=== PATIENT | female | born 1960 | race Caucasian/White ===

== ENCOUNTER 2017-05-12 19:13 | Emergency (ER) | payer MEDICARE, OTHER ==
[~2017-05-12] VITALS: Ht 157.5 cm; Wt 66.2 kg
[~2017-05-12 19:13] MED LIST: DILANTIN100 MG PO; KEPPRA500 MG PO; KEPPRA750 MG PO; PAXIL40 MG PO; PHENYTOIN SODI100 MG PO; PHENYTOIN50 MG PO; RISPERDAL2 MG PO; SIMVASTATIN20 MG PO
== END 2017-05-12 21:54 | disposition home or self-care (01) ==
LOC: ED 19:13
DX: G40.909 Epilepsy, unspecified, not intractable, without status epilepticus (principal); F17.200 Nicotine dependence, unspecified, uncomplicated; Z88.8 Allergy status to other drugs, medicaments and biological substances; Z79.899 Other long term (current) drug therapy
CPT/HCPCS: 80053; 80185; 82542; 85025; 99283

== ENCOUNTER 2017-07-03 11:34 | Emergency (ER) | payer MEDICARE, OTHER ==
[~2017-07-03] VITALS: Ht 157.5 cm; Wt 66.2 kg
== END 2017-07-03 13:40 | disposition home or self-care (01) ==
LOC: ED 11:34
DX: G40.909 Epilepsy, unspecified, not intractable, without status epilepticus (principal); F17.200 Nicotine dependence, unspecified, uncomplicated; Z88.4 Allergy status to anesthetic agent; Z79.899 Other long term (current) drug therapy
CPT/HCPCS: 99282

== ENCOUNTER 2017-10-10 18:46 | Emergency (ER) | payer MEDICARE, OTHER ==
[~2017-10-10] VITALS: Ht 157.5 cm; Wt 66.2 kg
[2017-10-10] MEDS ORDERED: DILANTIN100 MG PO (19:28)
== END 2017-10-10 19:36 | disposition home or self-care (01) ==
LOC: ED 18:46
DX: Z76.0 Encounter for issue of repeat prescription (principal); G40.909 Epilepsy, unspecified, not intractable, without status epilepticus; F17.200 Nicotine dependence, unspecified, uncomplicated; Z88.8 Allergy status to other drugs, medicaments and biological substances; Z79.899 Other long term (current) drug therapy
CPT/HCPCS: 99283

== ENCOUNTER 2018-02-13 13:14 | Emergency (ER) | payer MEDICARE, OTHER ==
[~2018-02-13] VITALS: Ht 157.5 cm; Wt 68.0 kg
== END 2018-02-13 14:26 | disposition home or self-care (01) ==
LOC: ED 13:14
PROC: 0HQ1XZZ Repair Face Skin, External Approach (ICD-10-PCS; principal; 2018-02-13)
DX: S01.81XA Laceration without foreign body of other part of head, initial encounter (principal); Z23 Encounter for immunization; F17.200 Nicotine dependence, unspecified, uncomplicated; Z88.8 Allergy status to other drugs, medicaments and biological substances; Z79.899 Other long term (current) drug therapy; W26.8XXA Contact with other sharp object(s), not elsewhere classified, initial encounter
CPT/HCPCS: 12011; 90471; 90715; 99282

== ENCOUNTER 2019-06-18 13:20 | Emergency (ER) | payer MEDICARE, OTHER ==
[~2019-06-18] VITALS: Ht 157.5 cm; Wt 72.6 kg
--- OUTSIDE RECORDS SUMMARY | 2019-06-18 13:22 | XMS ---
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 EJosiah VISIT COUNT (12 MO.) 1 [facility] TOTAL 1 NOTE: Visits indicate total known visits. ED/UCC VISIT TRACKING (12 MO.) 06/18/2019 13:21 [facility] [place] TYPE: Emergency COMPLAINT: - BACK PAIN,LT SIDED RIB PAIN INPATIENT VISIT TRACKING (12 MO.) No inpatient visits to display in this time frame [id number]
== END 2019-06-18 15:35 | disposition home or self-care (01) ==
LOC: ED 13:20
DX: S20.212A Contusion of left front wall of thorax, initial encounter (principal); F17.200 Nicotine dependence, unspecified, uncomplicated; Z88.4 Allergy status to anesthetic agent; W18.30XA Fall on same level, unspecified, initial encounter
CPT/HCPCS: 71101; 99283-25; 99406

== ENCOUNTER 2019-08-21 20:58 | Emergency (ER) | payer MEDICARE, OTHER ==
[~2019-08-21] VITALS: Ht 157.5 cm; Wt 72.6 kg
--- NOTE | ~2019-08-21 | EKG ---
[facility] [address] [facility] [place], [place] [address] Draft EK completed, results pending confirmation PATIENT NAME: DEISY KEVIN Electrocardiogram DATE OF : 60 PHYSICIAN: PRELIMINARY REPORT #: [id number] REPORT IS CONFIDENTIAL AND NOT TO BE RELEASED WITHOUT AUTHORIZATION
--- OUTSIDE RECORDS SUMMARY | 2019-08-21 21:00 | XMS ---
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 Niru VISIT COUNT (12 MO.) 1 [facility] 2 [facility] TOTAL 3 NOTE: Visits indicate total known visits. ED/UCC VISIT TRACKING (12 MO.) 08/21/2019 20:58 [facility] [place] TYPE: Emergency COMPLAINT: - FALL 07/29/2019 17:13 [facility] [place] TYPE: Emergency DIAGNOSES: - KNEE PAIN - Unspecified abnormalities of gait and mobility - Unilateral primary osteoarthritis, right knee - Residual foreign body in soft tissue 06/18/2019 13:21 [facility] [place] TYPE: Emergency COMPLAINT: - BACK PAIN,LT SIDED RIB PAIN DIAGNOSES: - Nicotine dependence, cigarettes, uncomplicated - Nicotine dependence, unspecified, uncomplicated - Pleurodynia - Allergy status to anesthetic agent status - Contusion of left front wall of thorax, initial encounter - Fall on same level, unspecified, initial encounter INPATIENT VISIT TRACKING (12 MO.) No inpatient visits to display in this time frame [id number]
[2019-08-21] MEDS ORDERED: KEPPRA750 MG PO (21:16)
[2019-08-21] MEDS ORDERED: RISPERDAL2 MG PO (21:17)
[2019-08-21] MEDS ORDERED: PAROXETINE HCL20 MG PO (21:17)
[2019-08-21] MEDS ORDERED: KEFLEX500 MG PO (23:49)
== END 2019-08-22 00:26 | disposition left against medical advice (07) ==
LOC: ED 20:58
DX: S00.31XA Abrasion of nose, initial encounter (principal); N39.0 Urinary tract infection, site not specified; T42.0X5A Adverse effect of hydantoin derivatives, initial encounter; F17.200 Nicotine dependence, unspecified, uncomplicated; Z88.8 Allergy status to other drugs, medicaments and biological substances; Z79.899 Other long term (current) drug therapy; W01.118A Fall on same level from slipping, tripping and stumbling with subsequent striking against other sharp object, initial encounter
CPT/HCPCS: 51701; 70450; 70486; 71045; 73560; 80053; 80185; 81001; 84484; 85025; 93005; 93010; 99284-25; G0480; J0696; J7030

== ENCOUNTER 2021-04-23 16:00 | Emergency (ER) | payer MEDICARE, OTHER ==
[~2021-04-23] VITALS: Ht 157.5 cm; Wt 78.9 kg
[~2021-04-23 16:00] MED LIST changes: +KEFLEX500 MG PO; +PAROXETINE HCL20 MG PO
--- OUTSIDE RECORDS SUMMARY | 2021-04-23 16:10 | XMS ---
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 Care History Medical/Surgical 08/22/2019 [facility] - Patient is currently established with [facility]. If patient is seen in the ED during business hours. Please contact CHWs at [facility]. Care Recommendation: This patient has had 5 or more Emergency Department visits in the last 12 months.\T\nbsp; Patient requires education on the scope and purpose of the ED as an acute care provider not a Primary Care Provider and should not be utilized for chronic conditions.\T\nbsp; These are guidelines and the provider should exercise clinical judgment when providing care. E.D. VISIT COUNT (12 MO.) 1 [facility] TOTAL 1 NOTE: Visits indicate total known visits. ED/UCC VISIT TRACKING (12 MO.) 04/23/2021 16:00 [facility] [place] TYPE: Emergency COMPLAINT: - L HAND LACERATION INPATIENT VISIT TRACKING (12 MO.) No inpatient visits to display in this time frame [id number]
== END 2021-04-23 17:39 | disposition home or self-care (01) ==
LOC: ED 16:00
DX: S61.512A Laceration without foreign body of left wrist, initial encounter (principal); W26.8XXA Contact with other sharp object(s), not elsewhere classified, initial encounter; F17.200 Nicotine dependence, unspecified, uncomplicated; Z79.899 Other long term (current) drug therapy
CPT/HCPCS: 12001; 73130; 99283-25

== ENCOUNTER 2021-09-05 13:57 | Emergency (ER) | payer MEDICARE, OTHER ==
[~2021-09-05] VITALS: Ht 157.5 cm; Wt 78.9 kg
--- OUTSIDE RECORDS SUMMARY | 2021-09-05 14:06 | XMS ---
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 Care History Medical/Surgical 08/22/2019 [facility] - Patient is currently established with [facility]. If patient is seen in the ED during business hours. Please contact CHWs at [facility]. Care Recommendation: This patient has had 5 [...] providing care. E.D. VISIT COUNT (12 MO.) 2 [facility] TOTAL 2 NOTE: Visits indicate total known visits. 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
[2021-09-05] MEDS ORDERED: ALENDRONATE SOD70 MG PO (14:31)
== END 2021-09-05 18:00 | disposition home or self-care (01) ==
LOC: ED 13:57
DX: S32.039A Unspecified fracture of third lumbar vertebra, initial encounter for closed fracture (principal); F17.200 Nicotine dependence, unspecified, uncomplicated; Z88.4 Allergy status to anesthetic agent; Z79.899 Other long term (current) drug therapy; W19.XXXA Unspecified fall, initial encounter
CPT/HCPCS: 72100; 99283-25; A9270

== ENCOUNTER 2022-06-02 19:16 | Emergency (ER) | payer MEDICARE, OTHER ==
[~2022-06-02] VITALS: Ht 157.5 cm; Wt 78.9 kg
[~2022-06-02 19:16] MED LIST changes: +ALENDRONATE SOD70 MG PO
--- OUTSIDE RECORDS SUMMARY | 2022-06-02 19:22 | XMS ---
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 Care History Medical/Surgical 08/22/[address] [facility] - Patient is currently established with [facility]. If patient is seen in the ED during business hours. Please contact CHWs at [facility]. Care Recommendation: This patient has [...] care. E.D. VISIT COUNT (12 MO.) 2 [facility] TOTAL 2 NOTE: Visits indicate total known visits. ED/UCC VISIT TRACKING (12 MO.) 06/02/2022 19:16 [facility] [place] TYPE: Emergency COMPLAINT: - SEIZURE 09/05/2021 13:58 [facility] [place] TYPE: Emergency COMPLAINT: - FELL INJURED BACK DIAGNOSES: - Unspecified fracture of third lumbar vertebra, initial encounter for closed fracture - LOW BACK PAIN, UNSPECIFIED - Unspecified fall, initial encounter - Allergy status to anesthetic agent - Nicotine dependence, unspecified, uncomplicated - Other senior living (current) drug therapy INPATIENT VISIT TRACKING (12 MO.) No inpatient visits to display in this time frame [id number]
== END 2022-06-02 20:30 | disposition home or self-care (01) ==
LOC: ED 19:16
DX: G40.909 Epilepsy, unspecified, not intractable, without status epilepticus (principal); F17.200 Nicotine dependence, unspecified, uncomplicated; Z79.899 Other long term (current) drug therapy; Z88.8 Allergy status to other drugs, medicaments and biological substances
CPT/HCPCS: 36415; 80053; 80185; 81001; 85025; 99284; G0480

== ENCOUNTER 2022-09-29 14:21 | Emergency (ER) | payer MEDICARE, OTHER ==
[~2022-09-29] VITALS: Ht 157.5 cm; Wt 66.2 kg
--- OUTSIDE RECORDS SUMMARY | 2022-09-29 14:28 | XMS ---
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 Care History Medical/Surgical 08/22/2019 [facility] - Patient is currently established with [facility]. If patient is seen in the ED during business hours. Please contact CHWs at [facility]. Care Recommendation: This patient has [...] care. E.D. V[facility]IT COUNT (12 MO.) 1 [facility] 2 [facility] TOTAL 3 NOTE: Visits indicate total known visits. ED/UCC VISIT TRACKING (12 MO.) 09/29/2022 14:21 [facility] [place] TYPE: Emergency COMPLAINT: - SEIZURE 09/14/2022 13:20 [facility] [place] TYPE: Emergency DIAGNOSES: - Syncope and collapse - SYNCOPE 06/02/2022 19:[address] 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
[2022-09-29] MEDS ORDERED: LEVETIRACETAM750 MG PO (14:36)
[2022-09-29] MEDS ORDERED: VENTOLIN HFA18 GM INH (18:21)
--- NOTE | 2022-10-01 06:56 | EKG ---
[facility] [address] [facility] [place], [place] [address] Signed Normal sinus rhythm Normal ECG When compared with ECG of 21-AUG-2019 21:29, No significant change was found Confirmed by SINDHU CALERO MD ([id number]) on 10/01/2022 6:56:02 AM Electronically Signed By: SINDHU CALERO MD 10/01/22 0656 PATIENT NAME: DEISY KEVIN TAL Electrocardiogram DATE OF : 60 PHYSICIAN: SINDHU CALERO MD REPORT #: [id number] REPORT IS CONFIDENTIAL AND NOT TO BE RELEASED WITHOUT AUTHORIZATION
== END 2022-09-29 19:08 | disposition home or self-care (01) ==
LOC: ED 14:21
DX: G40.909 Epilepsy, unspecified, not intractable, without status epilepticus (principal); R84.2 Abnormal level of other drugs, medicaments and biological substances in specimens from respiratory organs and thorax; F17.200 Nicotine dependence, unspecified, uncomplicated; Z88.8 Allergy status to other drugs, medicaments and biological substances; Z79.899 Other long term (current) drug therapy
CPT/HCPCS: 36415; 80053; 80185; 81001; 84484; 85025; 93005; 93010; 99284-25; G0480

== ENCOUNTER 2022-12-12 13:45 | Emergency (ER) | payer MEDICARE, OTHER ==
[~2022-12-12] VITALS: Ht 157.5 cm; Wt 66.2 kg
[~2022-12-12 13:45] MED LIST changes: +LEVETIRACETAM750 MG PO; +VENTOLIN HFA18 GM INH
--- OUTSIDE RECORDS SUMMARY | 2022-12-12 13:52 | XMS ---
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 Care History Medical/Surgical 08/22/2019 [facility] - Patient is currently established with [facility]. If patient is seen in the ED during business hours. Please contact CHWs at [facility]. Care Recommendation: This patient has had 5 [...] care. E.D. VISIT COUNT (12 MO.) 1 [facility] 3 [facility] TOTAL 4 NOTE: Visits indicate total known visits. ED/UCC VISIT TRACKING (12 MO.) 12/12/2022 13:[address] [facility] [place] TYPE: Emergency COMPLAINT: - SEIZURES 09/29/2022 14:[address] [facility] [place] TYPE: Emergency COMPLAINT: - SEIZURE DIAGNOSES: - Other half-way (current) drug therapy - Epilepsy, unspecified, not intractable, without status epilepticus - Abnormal level of other drugs, medicaments and biological substances in specimens from respiratory organs and thorax - Nicotine dependence, unspecified, uncomplicated - Allergy status to other drugs, medicaments and biological substances 09/14/2022 13:20 [facility] [place] TYPE: Emergency DIAGNOSES: - Syncope and collapse - SYNCOPE 06/02/2022 19:16 [facility] [place] TYPE: Emergency COMPLAINT: - SEIZURE DIAGNOSES: - Other half-way (current) drug therapy - Epilepsy, unspecified, not intractable, without status epilepticus - Allergy status to other drugs, medicaments and biological substances - Nicotine dependence, unspecified, uncomplicated INPATIENT VISIT TRACKING (12 MO.) No inpatient visits to display in this time frame [id number]
--- NOTE | 2022-12-13 21:43 | EKG ---
[facility] [address] [facility] [place] [address] Signed Normal sinus rhythm Normal ECG When compared with ECG of 29-SEP-2022 14:51, T wave inversion no longer evident in Lateral leads Confirmed by Marco Timmons MD () on 12/13/2022 9:42:43 PM Electronically Signed By: MARCO TIMMONS MD 12/13/222142 PATIENT NAME: HERBERTHDEISYZORHA PARADA Electrocardiogram DATE OF : 60 PHYSICIAN: MARCO TIMMONS MD REPORT #: [id number] REPORT IS CONFIDENTIAL AND NOT TO BE RELEASED WITHOUT AUTHORIZATION
== END 2022-12-12 18:23 | disposition home or self-care (01) ==
LOC: ED 13:45
DX: R56.9 Unspecified convulsions (principal); F17.200 Nicotine dependence, unspecified, uncomplicated; Z88.8 Allergy status to other drugs, medicaments and biological substances; Z79.899 Other long term (current) drug therapy
CPT/HCPCS: 36415; 51701; 71045; 80053; 80185; 81001; 84484; 85025; 93005; 93010; 99284-25; G0480; Q2009

== ENCOUNTER 2023-03-26 11:53 | Emergency (ER) | payer MEDICARE, OTHER ==
[~2023-03-26] VITALS: Ht 157.5 cm; Wt 64.0 kg
[~2023-03-26 11:53] MED LIST changes: +DOXYCYCLINE HY100 MG PO
--- OUTSIDE RECORDS SUMMARY | 2023-03-26 12:00 | XMS ---
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 Care History Medical/Surgical 08/22/2019 [facility] - Patient is currently established with [facility]. If patient is seen in the ED during business hours. Please contact CHWs at [facility]. Care Recommendation: This patient has had 5 [...] care. E.D. VISIT COUNT (12 MO.) [address] TOTAL 7 NOTE: Visits indicate total known visits. ED/UCC VISIT TRACKING (12 MO.) 03/26/2023 11:[address] [facility] [place] TYPE: Emergency COMPLAINT: - LACERATION RT HAND 02/16/2023 15:[address] [facility] [place] TYPE: Emergency COMPLAINT: - SKIN PROBLEM 02/04/2023 13:[address] 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 - Pain in left finger(s) 12/12/2022 13:46 [facility] TYPE: Emergency COMPLAINT: - SEIZURES DIAGNOSES: - Allergy status to other drugs, medicaments and biological substances - Nicotine dependence, unspecified, uncomplicated - Other chcf (current) drug therapy - Unspecified convulsions 09/29/2022 14:21 [facility] [place] TYPE: Emergency COMPLAINT: - SEIZURE DIAGNOSES: - Abnormal level of other drugs, medicaments and biological substances in specimens from respiratory organs and thorax - Allergy status to other drugs, medicaments and biological substances - Epilepsy, unspecified, not intractable, without status epilepticus - Nicotine dependence, unspecified, uncomplicated - 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
[2023-03-26 14:40] VITALS: BP 156/84
--- NOTE | 2023-03-26 18:31 | EKG ---
[facility] [address] [place] [address] Signed Sinus bradycardia Otherwise normal ECG When compared with ECG of 12-DEC-2022 14:33, No significant change was found Confirmed by Marco Timmons MD () on 03/26/2023 6:31:14 PM Electronically Signed By: MARCO TIMMONS MD 03/26/231830 PATIENT NAME: DEISY KEVIN Electrocardiogram DATE OF : 60 PHYSICIAN: MARCO TIMMONS MD REPORT #: [id number] REPORT IS CONFIDENTIAL AND NOT TO BE RELEASED WITHOUT AUTHORIZATION
== END 2023-03-26 14:41 | disposition home or self-care (01) ==
LOC: ED 11:53
DX: R55 Syncope and collapse (principal); S61.411A Laceration without foreign body of right hand, initial encounter; S62.640A Nondisplaced fracture of proximal phalanx of right index finger, initial encounter for closed fracture; W19.XXXA Unspecified fall, initial encounter; W25.XXXA Contact with sharp glass, initial encounter
CPT/HCPCS: 12002; 36415; 73130; 80053; 85025; 93005; 93010; 99284-25; J7030

== ENCOUNTER 2024-09-26 12:13 | Emergency (ER) | payer MEDICARE, OTHER ==
[~2024-09-26] VITALS: Ht 157.5 cm; Wt 79.2 kg
[~2024-09-26 12:13] MED LIST changes: +LEVETIRACETAM500 MG PO; +QUETIAPINE FUMA25 MG PO; +SULFAMETHOXAZO1 EAC1 PO
[2024-09-26] MEDS ORDERED: PAROXETINE HCL20 MG PO (12:25)
[2024-09-26] MEDS ORDERED: levETIRAcetam 500 MG TAB PO ONE (12:45)
[2024-09-26 13:02] LABS: BASOPHILS 0.4 % (0-2); EOSINOPHILS 0.2 % (0-6); HEMATOCRIT 43.9 % (35.0-50.0); HEMOGLOBIN 14.5 g/dL (12.0-18.0); LYMPHOCYTES 15.8 % (24-44); MCH 29.9 (27-36); MCV 90.8 fl (81-99); MONOCYTES 10.5 % (0-12); NEUTROPHILS 73.1 % (39-80); PLATELET COUNT 175 K/uL (140-440); RBC 4.84 M/ul (4.3-5.7); RDW 14.9 (10.5-15.0)
[2024-09-26 13:10] LABS: ANION GAP 13.7 (7-21); BUN/CREATININE RATIO 10.63 (6.0-28.6); CALCIUM 9.1 mg/dL (8.5-10.1); CREATININE, SERUM 0.94 mg/dL (0.55-1.02); POTASSIUM 3.7 mmol/L (3.5-5.1)
[2024-09-26 13:12] LABS: BILIRUBIN, URINE NEGATIVE (negative); BLOOD/HGB, URINE NEGATIVE (Negative); KETONE, URINE TRACE (Negative); LEUK ESTERASE, URINE NEGATIVE (negative); NITRITE, URINE POSITIVE (negative); PH, URINE 6.5 (5-7)
[2024-09-26 13:17] LABS: RED BLOOD CELLS, URINE 0-1 /hpf (0-5); WHITE BLOOD CELLS, URINE 41-50 /HPF (0-5)
[2024-09-26 13:18] LABS: BACTERIA, URINE 4+ /hpf (negative); CASTS, URINE NONE SEEN \\lpf; CRYSTALS, URINE NONE SEEN (0-1+); EPITHELIAL CELLS, URINE SQUAMOUS 1+ /lpf (0-1+); REFLEX CULTURE, URINE Yes (No)
[2024-09-26] MEDS ORDERED: CEPHALEXIN MONOHYDRATE 500 MG CAP PO ONE (13:45)
[2024-09-26] MEDS ORDERED: CEPHALEXIN500 MG PO (13:53)
[2024-09-26] MEDS ORDERED: KEPPRA500 MG PO (13:53)
[2024-09-26 14:06] VITALS: BP 163/86
== END 2024-09-26 14:09 | disposition home or self-care (01) ==
LOC: ED 12:13
PROVIDERS: Emergency Medicine
DX: R56.9 Unspecified convulsions (principal); N39.0 Urinary tract infection, site not specified; F17.200 Nicotine dependence, unspecified, uncomplicated; Z79.899 Other long term (current) drug therapy; Z88.8 Allergy status to other drugs, medicaments and biological substances
CPT/HCPCS: 36415; 51701; 80048; 81001; 85025; 99284-25; A9270

== ENCOUNTER 2024-11-27 07:35 | Inpatient (IN) | payer MEDICARE, OTHER ==
[~2024-11-27] VITALS: Ht 157.5 cm; Wt 80.6 kg
[~2024-11-27 07:35] MED LIST changes: +CEPHALEXIN500 MG PO
[2024-11-27 07:55] LABS: BASOPHILS 0.6 % (0-2); EOSINOPHILS 1.7 % (0-6); HEMATOCRIT 47.2 % (35.0-50.0); HEMOGLOBIN 15.1 g/dL (12.0-18.0); LYMPHOCYTES 62.5 % (24-44); MCV 93.6 fl (81-99); MONOCYTES 10.5 % (0-12); NEUTROPHILS 24.7 % (39-80); PLATELET COUNT 175 K/uL (140-440); RBC 5.04 M/ul (4.3-5.7); RDW 15.4 (10.5-15.0)
[2024-11-27] MEDS ORDERED: ALBUTEROL/IPRATROPIUM 3 ML NEB INH ONE (08:00)
[2024-11-27] MEDS ORDERED: AZITHROMYCIN 250 MG TAB PO ONE (08:15)
[2024-11-27] MEDS ORDERED: CEFTRIAXONE/SODIUM CHLORIDE 1 GM/100 ML PIGGYBACK IV ONE (08:15)
[2024-11-27 08:17] LABS: BILIRUBIN, URINE NEGATIVE (negative); BLOOD/HGB, URINE MODERATE (Negative); KETONE, URINE NEGATIVE (Negative); LEUK ESTERASE, URINE NEGATIVE (negative); NITRITE, URINE NEGATIVE (negative); PH, URINE 5.5 (5-7)
[2024-11-27 08:24] LABS: CRYSTALS, URINE NONE SEEN (0-1+); EPITHELIAL CELLS, URINE SQUAMOUS 2+ /lpf (0-1+)
[2024-11-27 08:25] LABS: BACTERIA, URINE RARE /hpf (negative); COLLECTION TYPE, URINE CLEAN CATCH; REFLEX CULTURE, URINE No (No)
[2024-11-27 08:30] LABS: ALBUMIN 3.5 g/dL (3.4-5.0); ALBUMIN/GLOBULIN RATIO 0.97 (1.1-2.4); ANION GAP 25.1 (7-21); BILIRUBIN, TOTAL 0.3 ng/dL (0.2-1.0); BUN/CREATININE RATIO 12.93 (6.0-28.6); CALCIUM 8.9 mg/dL (8.5-10.1); CREATININE, SERUM 1.16 mg/dL (0.55-1.02); MAGNESIUM 2.2 mg/dL (1.8-2.4); POTASSIUM 3.1 mmol/L (3.5-5.1); PROTEIN, TOTAL 7.1 g/dL (6.4-8.2)
[2024-11-27] MEDS ORDERED: SODIUM CHLORIDE 0.9% 1,000 ML IV PRN (08:30)
[2024-11-27] MEDS ORDERED: NALOXONE HCL 2 MG/2 ML SYR IV ONE (08:30)
[2024-11-27] MEDS ORDERED: AZITHROMYCIN/DEXTROSE 500 MG/250 ML PIGGYBACK IV ONE (08:30)
[2024-11-27 09:18] LABS: CORONAVIRUS COVID-19 AG NEGATIVE (NEGATIVE); INFLUENZA A AG NEGATIVE (NEGATIVE); INFLUENZA B AG NEGATIVE (NEGATIVE)
[2024-11-27] MEDS ORDERED: levETIRAcetam 500 MG/5 ML VIAL IV ONE (09:30)
[2024-11-27] MEDS ORDERED: FUROSEMIDE 40 MG/4 ML VIAL IV ONE (10:15)
[2024-11-27] MEDS ORDERED: POTASSIUM CHLORIDE 10 MEQ TABCR PO ONE ×2 (10:15→13:00)
[2024-11-27] MEDS ORDERED: NICOTINE 21 MG/24 HR 1 EA TDSY TD SCH (11:42)
[2024-11-27] MEDS ORDERED: ACETAMINOPHEN 325 MG TAB PO PRN (11:45)
[2024-11-27] MEDS ORDERED: ondansetron HCL 4 MG/2 ML VIAL IV PRN (11:45)
[2024-11-27] MEDS ORDERED: LEVETIRACETAM500 MG PO (12:00)
[2024-11-27] MEDS ORDERED: PHARMACY RENAL DOSE ADJUSTMENT 1 DOSE MISC PO SCH (12:00)
--- NOTE | 2024-11-27 12:48 | NUR ---
PATIENT ARRIVED TO UNIT VIA STRETCHER. PATIENT TRNASFERED SELF VIA SCOOTING FROM STRETCHER TO UNIT BED. REPORT RECEIVED FROM ED RN. LUNG SOUNDS CORASE. SAO2 WNL ON 2L O2 VIA NC. NOTED WET COUGH. REPORTS LAST BM WAS YESTERDAY, BOWEL TONES ACTIVE X 4 QUADRANTS. NO EDEMA NOTED. BILATERAL HEALS SKIN IS DRY AND CRACKED. SECOND NURSE SKIN CHECK WITH APPAREL RENTAL CLERK. VSS. PATIENT REPORTS UNSAFE LIVING ENVIRONEMTN AT HOME. SEIZURE PADS PLACED ON BED. PATIENT IS ALERT AND ORIENTED X 3 IS UNABLE TO RECALL HOW SHE ARRIVED TO THE HOSPITAL, HOWEVER SHE BELIEVES SHE ARRIVED HERE DUE TO HAVING A SEIZURE. PATIENT DENIES ANY PAIN OR DISCOMFORT. ORIENTED TO CALL LIGHT AND ROOM. NATA LIGHT WITHIN REACH.
[2024-11-27 12:52] VITALS: BP 117/63
--- NOTE | 2024-11-27 13:16 | NUR ---
PT NOT AVAILABLE FOR VISIT. PROVIDED PRAYER.
--- NOTE | 2024-11-27 13:30 | NUR ---
PATIENT RESTING IN BED WITH EYES CLOSED. RESPIRATIONS EVEN AND UNLABORED. CALL LIGHT WITHIN REACH.
[2024-11-27] MEDS ORDERED: AMP/SULBACTAM SOD 3 GM in SODIUM CHLORIDE 0.9% 100 ML IV SCH (14:00)
--- NOTE | 2024-11-27 14:01 | NUR ---
PT NOT AVAILABLE FOR VISIT. PROVIDED PRAYER.
[2024-11-27 14:25] LABS: LACTIC ACID, BLOOD 0.9 mmol/L (0.4-2.0)
--- NOTE | 2024-11-27 14:30 | NUR ---
NOTIFIED OF CRITICAL LAB RESULTS. MD TO UNIT. PATIENT DENIES ANY CHEST PAIN AT THIS TIME. REQUESTING THAT HER BROTHER BE NOTIFIED OF HER HOSPITALIZATION.
--- NOTE | 2024-11-27 14:43 | NUR ---
Patient is lying down in bed. Phone call was transferred into their room and phone was given to them.
--- NOTE | 2024-11-27 14:48 | NUR ---
UR CLINICAL REVIEW: 2 MN FOR VERSALUS-MEETS INPATIENT CRITERIA MEDICARE INPT 11/27/24 @ 1138 ORDER MATCHES REG NO AUTH REQUIRED PER MEDICARE GUIDELINES DISCHARGE PENDING FURTHER CASE MANAGEMENT EVALUATION.
--- NOTE | 2024-11-27 15:26 | NUR ---
PATIENT PLACED ON TELE PER MD ORDERS. ECHO IN PROGRESS AT THIS TIME. PATIENT REPORTS TO THIS RN THAT SHE WOULD LIKE HER BROTHER NOTIFIED OF HER BEING IN THE HOSPITAL. THIS RN CALLED BROTHER CHANELLE MEDRANO AND NOTIFIED HIM OF PATIENT IN HOSPITAL. BROTHER WILL CALL BACK LATER TO TALK WITH PATIENT AFTER ECHO STUDY IS COMPLETED.
--- NOTE | 2024-11-27 15:38 | EKG ---
[facility] [address] [facility] [facility] [place], [place] [address] Signed Normal sinus rhythm ST \T\ T wave abnormality, consider lateral ischemia Prolonged QT Abnormal ECG When compared with ECG of 26-DEC-2023 15:45, T wave inversion now evident in Lateral leads QT has lengthened Confirmed by Gerber iRch MD ([id number]) on 11/27/2024 1:21:09 PM Electronically Signed By: GERBER RICH MD 11/27/24 1538 PATIENT NAME: DEISY KEVIN TAL Electrocardiogram DATE OF : 60 PHYSICIAN: GERBER RICH MD REPORT #: [id number] REPORT IS CONFIDENTIAL AND NOT TO BE RELEASED WITHOUT AUTHORIZATION
--- NOTE | 2024-11-27 16:15 | NUR ---
IV ALARMING. IV SITE REMAINS WNL AND SALINE LOCKED. PATIENT DENIES ANY CHEST PAIN. REPORTS SHE FEELS, "SLEEPY." LUNGS REMAIN CORASE WITH NOTED CRACKLES IN BILATERAL LOBES. LOWER LOBES DIMINISHED. TELE #7 NORMAL SINUS RYTHYM NOTED. PATIENT DENIES ANY FURTHER NEEDS AT THIS TIME. CALL LIGHT WITHIN REACH.
[2024-11-27 17:22] VITALS: BP 121/58
[2024-11-27 17:24] VITALS: BP 121/58
--- NOTE | 2024-11-27 17:33 | NUR ---
PATIENT REFUSED DINNER. ACCEPTED ENSURE CLEAR. PATIENT DRANK ALL OF THE ENSURE CLEAR. DENIES ANY PAIN OR DISCOMFORT AT THIS TIME. PATIENT APPEARS TO BE SLEEPY HOWEVER SHE AROUSES TO SOUND AND TOUCH. FOLLOWS COMANDS. WHITE DRAINAING YELLOW URINE. NO FURTHER NEEDS. CALL LIGHT WITHIN REACH.
--- NOTE | 2024-11-27 18:19 | NUR ---
PATIENT RESTING IN BED, RESPIRATIONS EVEN AND UNLABORED. CALL LIGHT WITHIN REACH.
--- NOTE | 2024-11-27 19:30 | NUR ---
RECEIVED REPORT FROM ROSALINDA BANKS. PT SLEEPING SOUNDLY, SNORING. SZ PADS IN PLACE.
--- NOTE | 2024-11-27 19:54 | NUR ---
IV ATB STARTED PER EMAR, PT AWAKENED BRIEFLY THEN WENT RIGHT BACK TO SLEEP.
[2024-11-27] MEDS ORDERED: ALBUTEROL/IPRATROPIUM 3 ML NEB INH SCH (20:00)
--- NOTE | 2024-11-27 20:20 | NUR ---
dr pearson at rn station, this rn asked if md wanted a repeat troponin. per md, no need as trop is down trending. no new orders received at this time.
[2024-11-27 20:39] VITALS: BP 128/68
--- NOTE | 2024-11-27 20:40 | NUR ---
PT DROWSY, AWAKENS TO VOICE. ORIENTED X 4. SPEECH SLURRED. SZ PADS IN PLACE. DENIES PAIN. LS W/ RUBS AND EXP WHEEZES. DENIES SOB. 2L O2 N/C. CPOX IN PLACE. MNPC. HRR, TELEMETRY IN PLACE. BTA. PT REPORTS LBM YESTERDAY 11/26. F/C CLEAR AND YELLOW, CATHETER CARE DONE BY THIS RN. RH & LH SL WNL. PT HAS NOT BEEN OOB YET. BED ALARM IN PLACE FOR SAFETY. CALL LIGHT WITHIN REACH.
[2024-11-27] MEDS ORDERED: levETIRAcetam 500 MG TAB PO SCH (21:00)
[2024-11-27 21:25] VITALS: BP 128/68
--- NOTE | 2024-11-27 22:27 | NUR ---
PT SLEEPING SOUNDLY. APPEARS COMFORTABLE.
[2024-11-28] VITALS (12 sets, daily range): BP systolic 117–144; BP diastolic 64–83
--- NOTE | 2024-11-28 00:34 | NUR ---
PT SLEEPING SOUNDLY, APPEARS COMFORTABLE.
--- NOTE | 2024-11-28 01:42 | NUR ---
PT REQUESTING ICE WATER-PROVIDED. IV ATB INFUSING PER EMAR.
--- NOTE | 2024-11-28 02:23 | NUR ---
RIGHT WRIST IV INFILTRATED AT COMPLETION OF IV ATB. RW IV DC'D INTACT.
--- NOTE | 2024-11-28 05:35 | NUR ---
OUTREACH MANAGER OBTAINED VITALS AND I&O. WHITE BAG EMPTIED. PT STATES NO NEEDS AT THIS TIME. CALL LIGHT WITHIN REACH.
--- NOTE | 2024-11-28 05:36 | NUR ---
PT AWAKE FOR VS/LAB. STILL DROWSY, BUT ORIENTED. WANTS TO GO HOME CONG.
[2024-11-28 05:49] LABS: BASOPHILS 0.7 % (0-2); EOSINOPHILS 0.5 % (0-6); HEMATOCRIT 40.2 % (35.0-50.0); HEMOGLOBIN 13.5 g/dL (12.0-18.0); LYMPHOCYTES 28.4 % (24-44); MCH 30.3 (27-36); MCHC 33.7 g/dl (30-36); MCV 89.9 fl (81-99); MONOCYTES 12.6 % (0-12); NEUTROPHILS 57.8 % (39-80); PLATELET COUNT 154 K/uL (140-440); RBC 4.47 M/ul (4.3-5.7); RDW 14.5 (10.5-15.0)
[2024-11-28 06:02] LABS: ANION GAP 11.5 (7-21); BUN/CREATININE RATIO 14.77 (6.0-28.6); CALCIUM 8.7 mg/dL (8.5-10.1); CREATININE, SERUM 0.88 mg/dL (0.55-1.02); POTASSIUM 3.5 mmol/L (3.5-5.1)
--- NOTE | 2024-11-28 07:12 | NUR ---
REPORT RECEIVED FROM YARDING AND FOLDING MACHINE OPERATOR RN PASCUAL. PATIENT IS LYING IN BED WITH EYES CLOSED AND RESPIRATIONS ARE EVEN AND UNLABORED. SEIZURE PADS IN PLACE. COUGH NOTED. CALL LIGHT AND PERSONAL BELONGINGS ARE WITHIN REACH.
--- NOTE | 2024-11-28 08:32 | NUR ---
0800 AND 0900 MEDICATIONS ADMINISTERED PER THE EMAR. IV SITE FLUSHED WITH 10 ML NORMAL SALINE. 0800 UNASYN IS INFUSING AT THIS TIME. IV DRESSING IS CLEAN, DRY, AND INTACT. PATIENT IS SITTING UPRIGHT IN THE CHAIR WITH PHONE AND CALL LIGHT WITHIN REACH. BREAKFAST TRAY REMOVED. PATIENT STATED NO FURTHER NEEDS AT THIS TIME.
--- NOTE | 2024-11-28 08:38 | NUR ---
Imaging took patient for 10 minutes. Patient is currently sitting up in their chair with alarm set. Mobility was unknown at the beginning of shift, patient is now a SBA.
[2024-11-28] MEDS ORDERED: AZITHROMYCIN 250 MG TAB PO SCH (09:00)
[2024-11-28] MEDS ORDERED: ENOXAPARIN SODIUM 40 MG/0.4 ML SYR SUB-Q SCH (09:00)
[2024-11-28] MEDS ORDERED: POTASSIUM CHLORIDE 10 MEQ TABCR PO ONE (09:00)
--- NOTE | 2024-11-28 09:01 | NUR ---
UNASYN DOSE COMPLETE. IV SITE FLUSHED WITH 10 ML NORMAL SALINE AND IS NOW SALINE LOCKED. IV DRESSING IS CLEAN, DRY, AND INTACT. RT IS IN THE ROOM AT THIS TIME. PATIENT REMAINS SITTING IN THE CHAIR. CPOX AT BEDSIDE. CALL LIGHT AND PERSONAL BELONGINGS ARE WITHIN REACH.
--- NOTE | 2024-11-28 09:15 | NUR ---
PHYSICAL THERAPY IS WORKING WITH THE PATIENT AT THIS TIME.
[2024-11-28] MEDS ORDERED: LORazepam 2 MG/ML VIAL ONE (09:25)
--- NOTE | 2024-11-28 09:34 | NUR ---
RESPONDED TO RAPID RESPONSE ALERT. PROVIDED SUPPORTIVE PRESENCE, PRAYER.
--- NOTE | 2024-11-28 09:37 | NUR ---
PHYSICAL THERAPY CAME TO THE NURSES STATION AND REPORTED PATIENT LIGHT HEADED WHILE WORKING WITH HER. PATIENT BECAME VERY TIRED AND REPORTS "FEELING LIKE I'M GOING TO PASS OUT". ROSALINDA MOLINA AND ROSALINDA BUITRAGO ENTERED THE ROOM. PATIENT TREMULOUS UPON ENTERING THE ROOM IN THE UPPER EXTREMITIES. PATIENT IS ORIENTED TO SELF AND MONTH ONLY AT THIS TIME. CBG TAKEN AND WAS 116. RAPID RESPONSE CALLED. VITAL SIGNS ARE THE FOLLOWING: BP 122/57 (71), HR 91, RR 20, SPO2 96% ON 2 L NC. TELEMETRY REMAINED IN SINUS RHYTHM PER ROSALINDA MOLINA. AT BEDSIDE AND GAVE VERBAL ORDERS. ATIVAN 1 MG Q5 MINUTES PRN FOR SEIZURES. LACTIC ACID AND TROPONIN. THIS RN ENTERED ORDERS. PATIENT IS NOW LYING ON HER RIGHT SIDE WITH EYES CLOSED AND RESPIRATIONS ARE EVEN AND UNLABORED. PATIENT NOW DENIES NO FEELING OF PASSING OUT. CALL LIGHT AND PERSONAL BELONGINGS ARE WITHIN REACH. CPOX AT BEDSIDE. SEIZURE PADS ARE IN PLACE.
[2024-11-28] MEDS ORDERED: LORazepam 2 MG/ML VIAL IV PRN (09:45)
--- NOTE | 2024-11-28 09:56 | NUR ---
[facility] response team called for patient seizure. Help was offered and declined. Bed alarm was turned on. RNs Amanda and Kim in room with clinical genetics laboratory chief.
[2024-11-28] MEDS ORDERED: levETIRAcetam 500 MG TAB PO ONE (10:00)
--- NOTE | 2024-11-28 10:10 | NUR ---
FULL ASSESSMENT COMPLETE AND DOCUMENTED IN THE CHART. PATIENT IS ALERT AND ORIENTED TIMES THREE. PATIENT IS NOT ORIENTED TO SITUATION AT THIS TIME. PATIENT RE-ORIENTED. PATIENT EXPRESSED UNDERSTANDING. PATIENT WITH NO COMPLAINTS OF PAIN. GENERALIZED WEAKNESS NOTED. SKIN INTACT. MARIMAR CARE COMPLETE. PATIENT IS ON A REGULAR DIET AND BOWEL TONES ARE ACTIVE IN ALL FOUR QUADRANTS. CARDIAC WITH NORMAL S1 AND S2 ON AUSCULTATION. RADIAL AND PEDAL PULSES ARE STRONG BILATERALLY. CAPILLARY REFILL IS LESS THAN 3 SECONDS IN THE UPPER AND LOWER EXTREMITIES. SENSATION INTACT WITH NO COMPLAINTS OF NUMBNESS OR TINGLING. PATIENT IS ON 1L NC WITH THE CPOX AT BEDSIDE. PATIENT WITH A MOIST AND NON-PRODUCTIVE COUGH. LUNG SOUNDS ARE CLEAR IN ALL LUNG DENIS BILATERALLY. WHITE CATHETER DISCONTINUED AND PATIENT TOLERATED WELL. PATIENT IS DUE TO VOID. PATIENT EDUCATED ON CALLING WHEN NEED TO USE THE RESTROOM. PATIENT EXPRESSED UNDERSTANDING. PATIENT IS ON TELEMETRY NUMBER 7. HR IS IN THE 80'S. PATIENT STATED NO FURTHER NEEDS AT THIS TIME. CALL LIGHT AND PERSONAL BELONGINGS ARE WITHIN REACH.
--- NOTE | 2024-11-28 11:09 | NUR ---
Patient is sleeping in bed. ROSALINDA Patel decided against a shower and suggested a 2PA bed bath after lunch.
--- NOTE | 2024-11-28 11:09 | NUR ---
1000 KEPPRA ADMINISTERED PER THE EMAR. PATIENT LIED ON HER LEFT SIDE WITH EYES CLOSED AND RESPIRATIONS ARE EVEN AND UNLABORED. CPOX AT THE BEDSIDE. FRESH CUP OF ICE WATER ON THE BEDSIDE TABLE. PATIENT STATED NO FURTHER NEEDS AT THIS TIME. CALL LIGHT AND PERSONAL BELONGINGS ARE WITHIN REACH.
[2024-11-28] MEDS ORDERED: KEPPRA500 MG PO (11:17)
[2024-11-28] MEDS ORDERED: PAXIL20 MG PO (11:18)
[2024-11-28] MEDS ORDERED: SEROQUEL25 MG PO (11:18)
--- NOTE | 2024-11-28 12:17 | NUR ---
PATIENT IS LYING ON HER BACK/LEFT SIDE WITH EYES CLOSED AND RESPIRATIONS ARE EVEN AND UNLABORED. PATIENT IS ON 1L NC WITH THE CPOX AT BEDSIDE. CALL LIGHT AND PERSONAL BELONGINGS ARE WITHIN REACH.
--- NOTE | 2024-11-28 12:21 | NUR ---
CCU CALL, BATTERY ON NONPROFIT FUNDRAISER CHANGED. PT REQUESTING LIGHTS OFF AND WARM BLANKET WHICH WAS PROVIDED. PT DID NOT WANT TO SIT UP AT THIS TIME FOR LUNCH, SHE IS VERY DROWSY. CALL LIGHT WITHIN REACH, PT DENIES ANY FURTHER NEEDS.
--- NOTE | 2024-11-28 13:34 | NUR ---
FERNANDEZ IS IN THE ROOM AND SPEAKING WITH THE PATIENT AT THIS TIME.
--- NOTE | 2024-11-28 13:43 | NUR ---
PT NOT AVAILABLE FOR VISIT. PROVIDED PRAYER.
--- NOTE | 2024-11-28 14:25 | NUR ---
BROUGHT PT COFFEE SHE REQUESTED. PT SHARED INFORMATION REGARDING HER BROTHER AND STATED THAT "HE SLEEPS ALL DAY WHILE I DO ALL OF THE WORK", AND EXPRESSED CONCERN THAT HER BROTHER MIGHT BE MISTREATING HER DOGS. THE PT ALSO STATED THAT SHE THINKS THAT SHE WILL LIVE WITH HER SISTER AFTER SHE IS DISCHARGED. NO OTHER REQUESTS OR CONCERNS AT THIS TIME. SUPPORT GIVEN. BED ALARM ON, PADS ON SIDERAILS, AND CALL LIGHT WITHIN REACH.
--- NOTE | 2024-11-28 14:44 | NUR ---
PATIENT IS LYING IN BED ON HER LEFT SIDE WITH EYES CLOSED AND RESPIRATIONS ARE EVEN AND UNLABORED. HOB ELEVATED. PATIENT NC IN PLACE WITH THE CPOX AT BEDSIDE. CALL LIGHT AND PERSONAL BELONGINGS ARE WITHIN REACH.
--- NOTE | 2024-11-28 14:55 | NUR ---
UPDATE GIVEN TO PATIENTS SISTER REYMUNDO. QUESTIONS AND CONCERNS ADDRESSED. CALL ENDED.
--- NOTE | 2024-11-28 14:56 | NUR ---
PT RESTING IN BED WITH EYES CLOSED AND RESPIRATIONS EVEN AND UNLABORED. CALL LIGHT WITHIN REACH.
--- NOTE | 2024-11-28 15:35 | NUR ---
PATIENT IS LYING IN BED ON THEIR LEFT SIDE WITH EYES CLOSED AND RESPIRATIONS ARE EVEN AND UNLABORED UPON RN ENTERING. PATIENT STATED NO PAIN BUT "UPSET". PATIENT REPORTS BEING UPSET ABOUT HER DOGS AT HOME AND HER NOT BEING THERE. IV SITE FLUSHED WITH 10 ML NORMAL SALINE AND IS SALINE LOCKED. IV DRESSING IS CLEAN, DRY, AND INTACT. PATIENT IS ALERT AND ORIENTED TIMES THREE. PATIENT IS NOT ORIENTED TO WHY SHE IS IN THE HOSPITAL. PATIENT RE-ORIENTED AND SHE EXPRESSED UNDERSTANDING. PATIENT IS ON 1 L NC. PATIENT WITH CLEAR UPPER LOBES WITH RUBS IN THE BASES BILATERALLY. CPOX AT BEDSIDE. PATIENT STATED NO FURTHER NEEDS AT THIS TIME. CALL LIGHT AND PERSONAL BELONGINGS ARE WITHIN REACH.
--- NOTE | 2024-11-28 16:00 | NUR ---
Attempted to see pt during the day. She cont. to sleep following her siezure this am. Aid in room now, in and spoke with pt. She denies needing supplies, but does not want to return home with her brother. Pt wants to move to [place] and live with her sister. Pt is unsure how she would get there. She states she needs to return to her brothers house and get her belongings and also get belongings. She asks I call her sister Margareth. She is also interested in contacting [facility], Aging and Disability. I will help her call Corazon Sarmad at [facility]. I attempted to call Corazon, but she is leaving for the day. I will ask my coworkers to call tomorrow, if pt wants to remain in [place]. Per Corazon, if she moves to [place] she will need to work with [facility] there. I called her sister, Margareth. Margareth lives in a 1 bedroom appt., but states pt can come and live with her. She can also bring her dog. Margareth states she cannot drive, pt will have to make arrangement for transportation. We can check tomorrow if pt has [employer] transport service. Updated pt and discussed she is not ready for dc and we can work on discharge when she is closer to dc. She denies other needs.
--- NOTE | 2024-11-28 16:17 | NUR ---
PATIENT IS LYING IN BED WITH THE CPOX AT BEDSIDE. PATIENT PROVIDED COFFEE AND CREAMERS. PATIENT STATED NO FURTHER NEEDS AT THIS TIME. CALL LIGHT AND PERSONAL BELONGINGS ARE WITHIN REACH.
--- NOTE | 2024-11-28 17:03 | NUR ---
PATIENT IS LYING IN BED WITH EYES CLOSED AND RESPIRATIONS ARE EVEN AND UNLABORED. NC IN PLACE. CPOX AT BEDSIDE. CALL LIGHT AND PERSONAL BELONGINGS ARE WITHIN REACH.
--- NOTE | 2024-11-28 18:15 | NUR ---
PATIENT IS LYING IN BED WITH HOB ELEVATED. NC IN PLACE. CPOX AT BEDSIDE. PATIENT WITH EYES CLOSED AND RESPIRATIONS ARE EVEN AND UNLABORED. SEIZURE PADS IN PLACE. PATIENT WITH SHOWER CAP ON. CALL LIGHT AND PERSONAL BELONGINGS ARE WITHIN REACH.
--- NOTE | 2024-11-28 19:09 | NUR ---
Patient was given a bed bath. Bed linens changed and clean gown provided.
--- NOTE | 2024-11-28 19:27 | NUR ---
RECEIVED REPORT FROM ROSALINDA BUITRAGO. PT RESTING IN BED, APPEARS ASLEEP. SZ PADS IN PLACE. BED ALARM FOR SAFETY.
--- NOTE | 2024-11-28 20:45 | NUR ---
PT RESTING IN BED WATCHING TV. ALERT AND ORIENTED. REPORTS SHE CAN'T FALL BACK ASLEEP. VSS. HS MEDS ADMINISTERED PER EMAR. DENIES PAIN. PERRLA. LS COARSE W/ EXP WHEEZES, DIM TO BASES. 1L O2 N/C IN PLACE. SOB AT REST. CPOX IN PLACE. MNPC. HRR, TELE IN PLACE. BTA. VOIDS WNL. SL LW INFUSING HS ATB. BED ALARM IN PLACE FOR SAFETY.
[2024-11-28] MEDS ORDERED: levETIRAcetam 500 MG TAB PO SCH (21:00)
--- NOTE | 2024-11-28 21:07 | NUR ---
PT NEEDED TO USE BATHROOM. PT 1PA TO BATHROOM AND HAD UNSTEADY GAIT. PT VOIDED AND ASSITED BACK TO BED WITH FWW. CPOX RECONNECTED AND FIRE HYDRANT MECHANIC OBTAINED AND DOCUMENTED VITALS AND I&O. PT ICE WATER REFILLED. PT STATES NO FURTHER NEEDS AT THIS TIME. CALL LIGHT WITHIN REACH.
[2024-11-28] MEDS ORDERED: ALBUTEROL SULFATE 0.083% 3 ML VIAL INH PRN (23:15)
--- NOTE | 2024-11-28 23:36 | NUR ---
PT AWAKE, REPORTS DIFFICULTY FALLING ASLEEP. WATCHING TV, LIGHTS DIMMED.
[2024-11-29] VITALS (11 sets, daily range): BP systolic 126–149; BP diastolic 67–96
--- NOTE | 2024-11-29 00:30 | NUR ---
PT SLEEPING ON RIGHT SIDE. APPEARS COMFORTABLE. CPOX IN PLACE. BED ALARM ON FOR SAFETY. SZ PADS IN PLACE ON SIDE RAILS.
--- NOTE | 2024-11-29 02:05 | NUR ---
CALL LIGHT ANSWERED. PT NEEDED TO USE BAHTROOM. CAN 1PA TO BSC. PT VOIDED AND ASSISTED BACK TO BED. OUTPUT MEASURED. DELIVERY ROUTE DRIVER THEN OBTAINED AND DOCUMENTED VITALS AND I&O. PT STATES NO FURTHER NEEDS AT THIS TIME. CALL LIGHT WITHIN REACH.
--- NOTE | 2024-11-29 02:09 | NUR ---
PT UP TO BSC W/ EMBEDDED SOFTWARE ENGINEER. EMBEDDED SOFTWARE ENGINEER REPORTS PT MOVES FAST AND NEEDS CUEING FOR SAFETY. ALSO REPORTS GAIT TO BE UNSTEADY. ORIENTED X 4. DROWSY, AWAKENS FOR ASSESSMENT AND QUICKLY GOES BACK TO SLEEP. BED ALARM AND SEIZURE PADS IN PLACE FOR SAFETY.
--- NOTE | 2024-11-29 03:56 | NUR ---
PT REPORTS LFA IV PAIN, IV SITE LOOKS REDDENED AND SWOLLEN. IV DC'D INTACT. NEW 20G IV PLACED TO LEFT WRIST, SL'D. PT SLEPT THROUGH PROCEDURE.
[2024-11-29 05:30] LABS: BASOPHILS 0.7 % (0-2); EOSINOPHILS 1.2 % (0-6); HEMATOCRIT 37.1 % (35.0-50.0); HEMOGLOBIN 12.4 g/dL (12.0-18.0); MCHC 33.5 g/dl (30-36); MCV 89.6 fl (81-99); MONOCYTES 15.5 % (0-12); NEUTROPHILS 36.6 % (39-80); PLATELET COUNT 142 K/uL (140-440); RBC 4.14 M/ul (4.3-5.7); RDW 14.3 (10.5-15.0)
[2024-11-29 05:37] LABS: ANION GAP 12.9 (7-21); BUN/CREATININE RATIO 17.56 (6.0-28.6); CREATININE, SERUM 0.74 mg/dL (0.55-1.02); MAGNESIUM 1.8 mg/dL (1.8-2.4); POTASSIUM 3.9 mmol/L (3.5-5.1)
--- NOTE | 2024-11-29 06:31 | NUR ---
MANAGER BATTERY OBTAINED VITALS AND I&O. PT STATES NO NEEDS AT THIS TIME. CALL LIGHT WITHIN REACH AND BED ALARM ON.
--- NOTE | 2024-11-29 06:40 | NUR ---
PT SLEEPING SOUNDLY, APPEARS COMFORTABLE.
--- NOTE | 2024-11-29 07:04 | NUR ---
REPORT RECEIVED FROM PHYSICAL MEDICINE PHYSICIAN RN PASCUAL. PATIENT IS LYING IN BED WITH EYES CLOSED AND RESPIRATIONS ARE EVEN AND UNLABORED. CALL LIGHT AND PERSONAL BELONGINGS ARE WITHIN REACH. NC IN PLACE WITH THE CPOX AT BEDSIDE.
--- NOTE | 2024-11-29 09:34 | NUR ---
PATIENT IS LYING IN BED ON HER LEFT SIDE WITH EYES CLOSED AND RESPIRATIONS ARE EVEN AND UNLABORED. PATIENT IS ON ROOM AIR AND THE CPOX IS AT BEDSIDE. CALL LIGHT AND PERSONAL BELONGINGS ARE WITHIN REACH.
--- NOTE | 2024-11-29 10:00 | NUR ---
INTO SEE PATIENT. PATIENT STATES "I DO NOT WANT TO GO TO A [facility] FACILITY. THATS WHAT KILLED MY FAMILY MEMBER." ASKED PATIENT IF SHE WANTED TO GO TO SISTERS IN [place]. "I WILL GO HOME WITH MY BROTHER UNTIL THE SNOW IS GONE." DENIES ANY CM NEEDS AT THIS TIME.
--- NOTE | 2024-11-29 10:30 | NUR ---
PATIENT IS LYING IN BED ON HER LEFT SIDE WITH HOB ELEVATED. PATIENT WITH EYES CLOSED AND RESPIRATIONS ARE EVEN AND UNLABORED UPON THIS RN ENTERING THE ROOM. PATIENT WAKES UP UPON RN SPEAKING TO PATIENT. FULL ASSESSMENT COMPLETE AND DOCUMENTED IN THE CHART. PATIENT IS ALERT AND ORIENTED TIMES THREE. PATIENT IS NOT EDUCATED TO WHY SHE IS IN THE HOSPITAL. PATIENT RE-ORIENTED. PATIENT EXPRESSED UNDERSTANDING. PATIENT IS ON TELEMETRY NUMBER 7 AND IS IN NORMAL SINUS RHYTHM. CARDIAC WITH NORMAL S1 AND S2 ON AUSCULTATION. RADIAL AND PEDAL PULSES ARE STRONG BILATERALLY. CAPILLARY REFILL IN THE UPPER AND LOWER EXTREMITIES IS LESS THAN 3 SECONDS. SENSATION INTACT WITH NO COMPLAINTS OF NUMBNESS OR TINGLING. PATIENT IS ON ROOM AIR WITH THE CPOX AND ACCAPELLA AT BEDSIDE. PATIENT WITH A MOIST AND NON-PRODUCTIVE COUGH. LUNG SOUNDS ARE CLEAR IN THE UPPER LOBES BILATERALLY AND THE LEFT LOWER LUNG LOBE. RIGHT LOWER LUNG LOBE AUSCULTATED A RUB. PATIENT WITH NO COMPLAINTS OF SOB. PATIENT IS ON A REGULAR DIET AND BOWEL TONES ARE ACTIVE IN ALL FOUR QUADRANTS. PATIENT WITH NO COMPLAINTS OF PAIN. PATIENT WITH GENERALIZED WEAKNESS. PATIENT LAST BM WAS 11/26/24. PATIENT STATED NO FURTHER NEEDS AT THIS TIME. CALL LIGHT AND PERSONAL BELONGINGS ARE WITHIN REACH.
--- NOTE | 2024-11-29 10:59 | NUR ---
Patient was offered to get up in chair for breakfast and BR assist. All cares were reefused, reporting they wanted to sleep. Case management entered the room.
--- NOTE | 2024-11-29 11:19 | NUR ---
UPDATE RECEIVED FROM OT. PATIENT IS LYING ON HER LEFT SIDE WITH EYES CLSOED AND RESPIRATIONS ARE EVEN AND UNLABORED. PATIENT WITH CPOX AT THE BEDSIDE. CALL LIGHT AND PERSONAL BELONGINGS ARE WITHIN REACH.
--- NOTE | 2024-11-29 12:18 | NUR ---
PATIENT IS LYING IN BED ON HER LEFT SIDE WITH EYES CLOSED AND RESPIRATIONS ARE EVEN AND UNLABORED. CPOX AT BEDSIDE. PATIENT REMAINS ON ROOM AIR. LUNCH TRAY IS IN THE ROOM. CALL LIGHT AND PERSONAL BELONGINGS ARE WITHIN REACH.
--- NOTE | 2024-11-29 12:22 | NUR ---
THE PATIENTS SISTER, REYMUNDO, GIVEN AN UPDATE AT THIS TIME. PATIENT FAMILY MEMBER WITH NO FURTHER QUESTIONS OR CONCERNS. CALL ENDED.
--- NOTE | 2024-11-29 13:04 | NUR ---
PATIENT IS LYING IN BED ON HER BACK WITH EYES CLSOED AND RESPIRATIONS ARE EVEN AND UNLABORED. CPOX AT BEDSIDE. PATIENT REMAINS ON ROOM AIR. CALL LIGHT AND PERSONAL BELONGINGS ARE WITHIN REACH.
--- NOTE | 2024-11-29 14:21 | NUR ---
PATIENT IS LYING IN BED WITH HOB ELEVATED AND WATCHING TV. IV SITE FLUSHED WITH 10 ML NORMAL SALINE. IV DRESSING IS CLEAN, DRY, AND INTACT. 1400 UNASYN DOSE STARTED AT THIS TIME. PATIENT WITH NO COMPLAINTS OF PAIN. PATIENT IS ON TELEMETRY NUMBER 7. HR IS 88. CARDIAC WITH NORMAL S1 AND S2 ON AUSCULTATION. PATIENT IS ON ROOM AIR WITH THE CPOX AT BEDSIDE. LUNG SOUNDS ARE CLEAR IN THE UPPER LOBES BILATERALLY AND THE LEFT LOWER LUNG LOBE. CRACKLES AUSCULTATED IN THE RIGHT LOWER LUNG LOBE. PATIENT WITH NO COMPLAINTS OF SOB. RT IS NOW IN THE ROOM AND GIVING PATIENT A BREATHING TREATMENT. PATIENT STATED NO FURTHER NEEDS AT THIS TIME. CALL LIGHT AND PERSONAL BELONGINGS ARE WITHIN REACH.
--- NOTE | 2024-11-29 15:07 | NUR ---
PATIENT IS LYING IN BED WITH EYES OPEN AND RESPIRATIONS ARE EVEN AND UNLABORED. CPOX AT BEDSIDE. PATIENT IS WATCHING TV. CALL LIGHT AND PERSONAL BELONGINGS ARE WITHIN REACH.
--- NOTE | 2024-11-29 15:20 | NUR ---
MED REC COMPLETE
--- NOTE | 2024-11-29 16:06 | NUR ---
Patient assisted to BSC. Shower cap put on and hair scrubbed twice. Bed linens changed and clean gown provided. Patient returned to bed once done. Seizure pads were put back on rails and bed alarm set.
--- NOTE | 2024-11-29 16:08 | NUR ---
PATIENT IS LYING IN BED WITH EYES CLOSED AND RESPIRATIONS ARE EVEN AND UNLABROED. PATIENT IS ON ROOM AIR AND CPOX AT THE BEDSIDE. SPO2 IS 92%. SEIZURE PADS IN PLACE. CALL LIGHT AND PERSONAL BELONGINGS ARE WITHIN REACH.
--- NOTE | 2024-11-29 18:09 | NUR ---
PATIENT IS IN BED AND SITTING UPRIGHT AND EATING DINNER. CPOX AT BEDSIDE. TV IS ON. CALL LIGHT AND PERSONAL BELONGINGS ARE WITHIN REACH.
--- NOTE | 2024-11-29 20:21 | NUR ---
AWAKE, ALERT AND ORIENTED EXCEPT TO SITUATION. CLEAR SPEECH. ON ROOM AIR, LUNGS CRACKLES . DIM AT BAES, MOIST NONPRODUCTIVE COUGH. TELE#[address], EDEMA TO LE. SL lw PATENT. TOLERATED FLUIDS WELL.. SEIZURES PADS IN PLACE. BED ALRM IN PLACE,
--- NOTE | 2024-11-29 22:42 | NUR ---
GOT UP TO CHAIR, BACK TO BED, ON ROOM AIR, NO C/O SP OR SOB. TOLERATED WELL, SEIZURE PADS IN PLACE. ALERT TO SELF, TIME, DATE, PLACE BUT NOT SITUATION. PLEASANT AND COOPERATIVE, STRONG BODY ODOR PRESENT. SL PATENT
[2024-11-30] VITALS (11 sets, daily range): BP systolic 117–145; BP diastolic 58–82
--- NOTE | 2024-11-30 00:17 | NUR ---
Awake, watchng tv. On room air. no c/o pain or discomfort. tele#7 in plce SR. seizure pads in bed. bed alrm in place
--- NOTE | 2024-11-30 01:09 | NUR ---
CLASSROOM TECHNOLOGY TECHNICIAN OBTAINED VITALS AND I7O. ICE WATER REFILLED. PT STATES NO NEEDS AT THIS TIME. CALL LIGHT WITHIN REACH AND BED ALARM ON.
--- NOTE | 2024-11-30 01:28 | NUR ---
bed alarm going off. Pt crawled outof bed over the seizure pads, grabbed walker and walked to br, voided QS. Back to bed, independent, On room air, tele#7 in [facility], SR, denies CP. no sob noted with exertion.
--- NOTE | 2024-11-30 04:11 | NUR ---
Resting, eyes closed, calm, repositions self in bed. seizure pads in place.
--- NOTE | 2024-11-30 05:26 | NUR ---
SHOP BLACKSMITH OBTAINED VITALS AND I&O. PT STATES NO NEEDS AT THIS TIME. CALL LIGHT WITHIN REACH AND BED ALARM ON.
[2024-11-30 06:00] LABS: ANION GAP 12.8 (7-21); CALCIUM 8.9 mg/dL (8.5-10.1); CREATININE, SERUM 0.64 mg/dL (0.55-1.02); MAGNESIUM 1.9 mg/dL (1.8-2.4); POTASSIUM 3.8 mmol/L (3.5-5.1)
[2024-11-30 06:18] LABS: BASOPHILS 0.5 % (0-2); EOSINOPHILS 1.5 % (0-6); HEMATOCRIT 39.5 % (35.0-50.0); HEMOGLOBIN 13.2 g/dL (12.0-18.0); LYMPHOCYTES 39.5 % (24-44); MCH 29.9 (27-36); MCHC 33.4 g/dl (30-36); MCV 89.4 fl (81-99); MONOCYTES 14.1 % (0-12); NEUTROPHILS 44.4 % (39-80); PLATELET COUNT 150 K/uL (140-440); RBC 4.42 M/ul (4.3-5.7); RDW 14.4 (10.5-15.0)
--- NOTE | 2024-11-30 07:12 | NUR ---
REPORT RECEIVED FROM GROUNDS RESTORATION SPECIALIST RN RADHA. PATIENT IS LYING IN BED WITH EYES CLOSED AND RESPIRATIONS ARE EVEN AND UNLABORED. CPOX AT BEDSIDE AND PATIENT IS ON ROOM AIR. CALL LIGHT AND PERSONAL BELONGINGS ARE WITHIN REACH.
--- NOTE | 2024-11-30 08:01 | NUR ---
Board has been updated and call light has been placed within reach, No request from patient at this time
--- NOTE | 2024-11-30 08:38 | NUR ---
PATIENT IS LYING ON HER RIGHT SIDE WITH EYES CLOSED AND RESPIRATIONS ARE EVEN AND UNLABORED. UNASYN INFUSION COMPLETE. IV FLUSHED WITH 10 ML NORMAL SALINE AND IS SALINE LOCKED. IV DRESSING IS CLEAN, DRY, AND INTACT. CPOX AT THE BEDSIDE. TV IS ON. PATIENT STATED NO NEEDS AT THIS TIME. CALL LIGHT AND PERSONAL BELONGINGS ARE WITHIN REACH.
--- NOTE | 2024-11-30 09:32 | NUR ---
PATIENT IS LYING IN BED WITH EYES CLOSED AND RESPIRATIONS ARE EVEN AND UNLABORED. CPOX AT THE BEDSIDE AND PATIENT REMAINS ON ROOM AIR. CALL LIGHT AND PERSONAL BELONGINGS ARE WITHIN REACH.
--- NOTE | 2024-11-30 10:14 | NUR ---
PATIENT IS LYING IN BED WITH EYES CLOSED AND RESPIRATIONS ARE EVEN AND UNLABORED UPON RN ENTERING THE ROOM. PATIENT AROUSABLE TO VOICE. PATIENT IS ALERT AND ORIENTED TIMES THREE. PATIENT DOES NOT KNOW WHY SHE IS HERE. PATIENT IS ON TELEMETRY NUMBER 7 AND IS IN NORMAL SINUS RHYTHM. HR IS 76. NORMAL S1 AND S2 ON AUSCULTATION. RADIAL AND PEDAL PULSES ARE STRONG BILATERALLY. CAPILLARY REFILL IN THE UPPER AND LOWER EXTREMITIES IS LESS THAN 3 SECONDS. SENSATION INTACT WITH NO COMPLAINTS OF NUMBNESS OR TINGLING. PATIENT WITH NO COMPLAINTS OF PAIN. IV IS SALINE LOCKED. IV DRESSING IS CLEAN, DRY, AND INTACT. SKIN INTACT. DRY AND CRACKED HEELS/FEET NOTED. PATIENT IS ON A REGULAR DIET AND BOWEL TONES ARE ACTIVE IN ALL FOUR QUADRANTS. PATIENT IS ON ROOM AIR WITH THE CPOX AT BEDSIDE. MOIST AND NON-PRODUCTIVE COUGH NOTED. LUNG SOUDNS ARE CLEAR IN THE UPPER LOBES AND CRACKLES IN THE BASES BILATERALLY. PATIENT STATED NO FURTHER NEEDS AT THIS TIME. SEIZURE PADS IN PLACE. CALL LIGHT AND PERSONAL BELONGINGS ARE WITHIN REACH.
--- NOTE | 2024-11-30 11:21 | NUR ---
PATIENT IS ON ROOM AIR WITH THE CPOX AT BEDSIDE. PATIENT IS LYING ON HER RIGHT SIDE WITH EYES CLOSED AND RESPIRATIONS ARE EVEN AND UNLABORED. SEIZURE PADS IN PLACE. CALL LIGHT AND PERSONAL BELONGINGS ARE WITHIN REACH.
--- NOTE | 2024-11-30 12:11 | NUR ---
PATIENT IS LYING IN BED ON HER BACK WITH EYES CLOSED AND RESPIRATIONS ARE EVEN AND UNLABORED. PATIENT IS ON ROOM AIR WITH CPOX AT THE BEDSIDE. SEIZURE PADS IN PLACE. CALL LIGHT AND PERSONAL BELONGINGS ARE WITHIN REACH.
--- NOTE | 2024-11-30 12:58 | NUR ---
IV SITE FLUSHED WITH 10 ML NORMAL SALINE 1400 UNASYN INFUSING AT THIS TIME. NEW TELEMETRY BATTERY IN PLACE. VITAL SIGNS TAKEN AND DOCUMENTED IN THE CHART. CPOX AND SEIZURE PADS IN PLACE. PATIENT STATED NO FURTHER NEEDS AT THIS TIME. CALL LIGHT AND PERSONAL BELONGINGS ARE WITHIN REACH.
--- NOTE | 2024-11-30 13:35 | NUR ---
PATIENT PIVOT TO THE COMMODE. PATIENT VOID 450 ML YELLOW URINE. BM NOTED IN THE BRIEF. FRESH BRIEF IN PLACE. BED LINENS CHANGED AT THIS TIME. PATIENT TRANSFERRED BACK TO BED. SEIZURE PADS IN PLACE. CPOX AT BEDSIDE. IV PUMP CLEARED. PATIENT STATED NO FURTHER NEEDS AT THIS TIME. CALL LIGHT AND PERSONAL BELONGINGS ARE WITHIN REACH.
--- NOTE | 2024-11-30 14:04 | NUR ---
PATIENT IS LYING IN BED WITH HOB ELEVATED. CPOX AND SEIZURE PADS IN PLACE. RT IS IN THE ROOM ADMINISTERING A BREATHING TREATMENT. CALL LIGHT AND PERSONAL BELONGINGS ARE WITHIN REACH.
--- NOTE | 2024-11-30 14:50 | NUR ---
PATIENT IS LYING IN BED WITH EYES CLOSED AND RESPIRATIONS ARE EVEN AND UNLABORED. SEIZURE PADS IN PLACE. PATIENT IS ON TELEMETRY NUMBER 7 AND IS IN NORMAL SINUS RHYTHM. HR IS 85. CARDIAC WITH NORMAL S1 AND S2 ON AUSCULTATION. PATIENT WITH NO COMPLAINTS OF PAIN. PATIENT IS ON ROOM AIR. LUNG SOUNDS ARE CLEAR IN THE UPPER LOBES WITH CRACKLES IN THE BASES BILATERALLY. PATIENT STATED NO FURTHER NEEDS AT THIS TIME. CALL LIGHT AND PERSONAL BELONGINGS ARE WITHIN REACH.
--- NOTE | 2024-11-30 15:41 | NUR ---
PATIENT IS LYING IN BED WITH EYES OPEN AND RESPIRATIONS ARE EVEN AND UNLABORED. HOB ELEVATED. PATIENT EXPRESSED CONCERN ABOUT HER SISTER HAVING A HEART ATTACK PRIOR TO THIS AND IS TAKING NITROGLYCERIN. PATIENT EXPRESSED BEING SCARED ABOUT THIS HAPPENING TO HER. PATIENT REASSURED. PATIENT STATED NO FURTHER NEEDS AT THIS TIME. CALL LIGHT AND PERSONAL BELONGINGS ARE WITHIN REACH. SEIZURE PADS IN PLACE.
[2024-11-30] MEDS ORDERED: lisinopriL 5 MG TAB PO SCH (15:43)
[2024-11-30] MEDS ORDERED: EMPAGLIFLOZIN 10 MG TAB PO SCH (15:44)
--- NOTE | 2024-11-30 15:54 | NUR ---
MD NOTIFIED OF PATIENT CONCERNS IN THE PREVIOUS NOTE. WITH NO NEW ORDERS.
--- NOTE | 2024-11-30 18:05 | NUR ---
PATIENT AMBULATED TO THE DOOR WITH NO GOWN ON. ROSALINDA RODRIGUEZ AND THIS RN RAN TO THE DOOR. PATIENT THEN INSTRUCTED TO GO BACK TO BED WITH TWO RN ASSISTING. PATIENT FOLLOWING INSTRUCTIONS. PATIENT THEN TO EDGE OF BED AND EYES SHUT AND PATIENT ASSISTED TO THE BED SAFELY. PATIENT IS NOT RESPONDING TO RN AT THIS TIME. PATIENT THEN ASSISTED AND LYING DOWN. PATIENT COVERED IN STOOL AND REPOSITIONED IN BED. WHEN IN BED PATIENT REMAINS NOT RESPONDING. PATIENT IS WARM AND CLAMMY TO THE TOUCH. PATIENT KEEPS TRYING TO PULL THE COVERS UP. NO TREMORS OBSERVED. BP IS 119/81 WITH A MAP OF 90 AND HR IS 90. CBG WAS 103. PATIENT IS ONLY ORIENTED TO SELF AT THIS TIME. DR. TIMMONS AT THE BEDSIDE NOW. THIS RN GAVE UPDATE. WITH NO NEW ORDERS AT THIS TIME. MD STATED HE TRIED TO GET A HOLD OF THE PATIENTS SISTER AND THE SISTER DID NOT ANSWER. THIS RN WELL THREE OTHER NURSES IN THE ROOM. BED LINENS CHANGED. NEW BRIEF IN PLACE. WIPE DOWN COMPLETE. PATIENT COVERED UP AND SEIZURE PADS ARE IN PLACE. 0 VITAL SIGNS RETAKEN AND ARE THE FOLLOWING: TEMP 97.7, BP 134/50, MAP 70, RR 28, SPO2 IS 91% ON ROOM AIR, HR IS 107. PATIENT RECONNECTED TO THE CPOX. BED ALARM ON. PATIENT STATED NO FURTHER NEEDS AT THIS TIME. CALL LIGHT AND PERSONAL BELONGINGS ARE WITHIN REACH. CURTAINS AND DOOR ARE OPEN.
--- NOTE | 2024-11-30 18:40 | NUR ---
PATIENT IS SITTING UPRIGHT IN BED. THIS RN COMES TO THE BEDSIDE. PATIENT RECONNECTED TO TELEMETRY. PATIENT STATED SHE HAD TO VOID. THIS RN AND ROSALINDA MOLINA PUT A PUREWICK IN. PATIENT EDUCATED ON HOW THE PUREWICK WORKS. PATIENT EXPRESSED UNDERSTANDING. PATIENT STATED NO FURTHER NEEDS AT THIS TIME. BED ALARM ON. CALL LIGHT AND PERSONAL BELONGINGS ARE WITHIN REACH. SEIZURE PADS IN PLACE.
--- NOTE | 2024-11-30 19:38 | NUR ---
awake, answers appropriately, alert to all except situation. Clear speech. moves all extremities well. On room air, lungs with fine crackles at bases, moist harsh non productive cough. CPOX at bedside, gets nebs. denies sob. repositions self in bed. Seizure pads in place. Bed alarm. Pleasnt and cooperative. Denies c/o pain or lightheadness
--- NOTE | 2024-11-30 20:07 | NUR ---
TOOK PO MEDS W/O PROBLEMS, DENIES S/SX SEIZURE ACTIVITY, AWAKE, ALERT, FOLLOWS INSTRUCTIONS, TELE#[address], SEIZURE PADS IIN RAILS. HOB ELEVATED. ON ROOM AIR.
[2024-11-30] MEDS ORDERED: carvediloL 3.125 MG TAB PO SCH (21:00)
--- NOTE | 2024-11-30 22:22 | NUR ---
PT IN BED, SEIZURE PADS IN PLACE, AWAKE, FLAT AFFECT, ALERT AND ORIENTED DENIES SEIZURE ACTIVITY S/SX. WATCHING TV. NO C/O PAIN. PUDIN AND FRESH WATER GIVEN, PURE WICK IN PLACE. BED ALARM IN PLACE.
--- NOTE | 2024-11-30 23:29 | NUR ---
PATIENT BED ALARM WENT OFF. THIS OPEN CLAIMS REPRESENTATIVE WENT TO CHECK ON HER. PATIENT WAS READJUSTING IN BED AND SAID "I'M MAD", I ASKED HER WHY SHE IS MAD SHE SAID "THE DOCTOR SAID IM SUPPOSED TO BE TRANSFERED SOMEHWERE, IM NOT GOING! NOT EVEN TO A [facility]. MY (FAMILY MEMBER) NEEDS ME AT HOME. IF I GO SOMEWHERE TOMMOROW IM SUEING THIS HOSPITAL." I TOLD HER I WOULD TELL THE NURSE AND THAT SHE ISNT GOING ANYWHERE TONIGHT. I REFILLED HER WATER AND LEFT HER TO REST. BED ALARM ON, CALL LIGHT IN REACH. SHE HAD NO OTHER NEEDS AT THIS TIME.
[2024-12-01] VITALS (12 sets, daily range): BP systolic 112–133; BP diastolic 49–76
--- NOTE | 2024-12-01 01:33 | NUR ---
Awake, alert x3, follows instructions, watching tv. upset over "I want a different docotr than the one I got yesterday, He is trying to send me someplace else but I have my own Dr here, I have an appointment with Dr You Monday, I do not want to change docotrs". tried to explain Pt the reasoning behinf a possible transfer to another hosp due to seizures and that she could still keep her own doctor on returns, not very receptive. Tele#[address] Sinus Rhythm. CPOX at bedside, on room air. pure wick in place, no drainage noted yet. denies need for voiding. seizure pads in palce, bed alarms.
[2024-12-01 05:37] LABS: BASOPHILS 0.7 % (0-2); EOSINOPHILS 1.5 % (0-6); HEMATOCRIT 40.8 % (35.0-50.0); HEMOGLOBIN 13.5 g/dL (12.0-18.0); LYMPHOCYTES 36.9 % (24-44); MCH 29.8 (27-36); MCHC 33.1 g/dl (30-36); MCV 90.1 fl (81-99); MONOCYTES 14.2 % (0-12); NEUTROPHILS 46.7 % (39-80); PLATELET COUNT 162 K/uL (140-440); RBC 4.53 M/ul (4.3-5.7); RDW 14.3 (10.5-15.0)
--- NOTE | 2024-12-01 05:55 | NUR ---
Alert and orineted but to situation. Calmer. on room air. CPOX at bedside, tele#[address] SR, denies CP. Lungs clear dim at bases, moist non productive harsh hacky cough present. UP to for daily standing scale 80.6KG. Pleasnt and cooperative, edema to LE. was incontinent of urine and bowel. skin care done. pure wick replaced again. draining light tea colored urine. repositions self in bed. Watching tv. seizure pads in bed. Bed alarm in place
[2024-12-01 05:57] LABS: ANION GAP 9.8 (7-21); BUN/CREATININE RATIO 21.73 (6.0-28.6); CALCIUM 9.1 mg/dL (8.5-10.1); CREATININE, SERUM 0.92 mg/dL (0.55-1.02); POTASSIUM 3.8 mmol/L (3.5-5.1)
--- NOTE | 2024-12-01 06:46 | NUR ---
Pt used call light, up to BSC 1PA. incontinent of bm. gerri wiron martínez'd. skin care done, fresh pullups give. back to bed, Tachy when up to BSC. tele#[address] SR.
--- NOTE | 2024-12-01 07:00 | NUR ---
REPORT RECEIVED FROM HIGHWAY MAINTENANCE SUPERVISOR RN RADHA. PATIENT IS LYING IN BED WITH EYES OPEN AND RESPIRATIONS ARE EVEN AND UNLABORED. CPOX AT BEDSIDE. SEIZURE PADS IN PLACE. CALL LIGHT AND PERSONAL BELONGINGS ARE WITHIN REACH.
--- NOTE | 2024-12-01 08:30 | NUR ---
0800 AND 0900 MEDICATIONS ADMINISTERED PER THE EMAR. FULL ASSESSMENT COMPLETE AND DOCUMENTED IN THE CHART. PATIENT IS ALERT AND ORIENTED TIMES FOUR. PATIENT IS ON TELEMETRY NUMBER 7 AND IS IN NORMAL SINUS RHYTHM. CARDIAC WITH NORMAL S1 AND S2 ON AUSCULTATION. RADIAL AND PEDAL PULSES ARE STRONG BILATERALLY. CAPILLARY REFILL IN THE UPPER AND LOWER EXTREMITIES IS LESS THAN 3 SECONDS BILATERALLY. SENSATION INTACT WITH NO COMPLAINTS OF NUMBNESS OR TINGLING. PATIENT IS ON ROOM AIR WITH THE CPOX AT BEDSIDE. LUNG SOUNDS ARE CLEAR IN THE UPPER LOBES WITH CRACKLES IN THE BASES BILATERALLY. PATIENT WITH A MOIST AND NON-PRODUCTIVE COUGH. PATIENT IS ON A REGULAR DIET AND BOWEL TONES ARE ACTIVE IN ALL FOUR QUADRANTS. LAST BM 11/30/24. IV SITE FLUSHED WITH 10 ML NORMAL SALINE AND THE 0800 UNASYN DOSE IS INFUSING AT THIS TIME. IV DRESSING IS CLEAN, DRY, AND INTACT. SKIN WITH DRY AND FLAKING ON THE BILATERAL FEET/HEELS. PATIENT WITH NO COMPLAINTS OF PAIN. BREAKFAST TRAY SET UP IN FRONT OF THE PATIENT. SEIZURE PADS IN PLACE. PATIENT STATED NO FURTHER NEEDS AT THIS TIME. CALL LIGHT AND PERSONAL BELONGINGS ARE WITHIN REACH.
--- NOTE | 2024-12-01 08:42 | NUR ---
Patient was pleaseant this morning, she was able to say my name and respond to questions like "How are you, are you hungry?" Board has been updated and call light has been placed within reach
[2024-12-01] MEDS ORDERED: SPIRONOLACTONE 25 MG TAB PO SCH (09:00)
--- NOTE | 2024-12-01 09:02 | NUR ---
PATIENT IS LYING IN BED AND SPEAKING WITH MIKE [place]. CPOX AND SEIZURE PADS IN PLACE. CALL LIGHT AND PERSONAL BELONGINGS ARE WITHIN REACH.
--- NOTE | 2024-12-01 10:21 | NUR ---
PATIENT IS LYING ON HER LEFT SIDE WITH EYES OPEN AND RESPIRATIONS ARE EVEN AND UNLABORED. SEIZURE PADS IN PLACE. PATIENT IS WATCHING TV. CALL LIGHT AND PERSONAL BELONGINGS ARE WITHIN REACH.
--- NOTE | 2024-12-01 11:02 | NUR ---
PATIENT IS AMBULATING IN THE HALLWAY AT THIS TIME WITH PT.
--- NOTE | 2024-12-01 11:11 | NUR ---
Patient is in the bed, no request at this time, call light has been placed within reach
--- NOTE | 2024-12-01 11:17 | NUR ---
PATIENT IS LYING IN BED ON HER LEFT SIDE WITH EYES CLOSED AND RESPIRATIONS ARE EVEN AND UNLABORE. CPOX AT BEDSIDE. SEIZURE PADS IN PLACE. BED ALARM ON. CALL LIGHT AND PERSONAL BELONGINGS ARE WITHIN REACH.
--- NOTE | 2024-12-01 12:10 | NUR ---
PATIENT IS LYING ON BACK IN HER BED WITH EYES CLOSED AND RESPIRATIONS ARE EVEN AND UNLABORED. HOB ELEVATED. SEIZURE PADS IN PLACE. CPOX AT THE BEDSIDE. CALL LIGHT AND PERSONAL BELONGINGS ARE WITHIN REACH.
--- NOTE | 2024-12-01 13:00 | NUR ---
PATIENT IS LYING IN BED ON HER BACK WITH EYES CLOSED AND RESPIRATIONS ARE EVEN AND UNLABORED. CPOX AT BEDSIDE. CALL LIGHT AND PERSONAL BELONGINGS ARE WITHIN REACH.
--- NOTE | 2024-12-01 14:31 | NUR ---
PATIENT IS LYING IN BED WITH EYES OPEN AND RESPIRATIONS ARE EVEN AND UNLABORED. CPOX AT THE BEDSIDE. PATIENT WITH NO COMPLAINTS OF PAIN. PATIENT IS ALERT AND ORIENTED TIMES FOUR. GENERALIZED WEAKNESS NOTED. SEIZURE PADS IN PLACE. CARDIAC WITH NORMAL S1 AND S2 ON AUSCULTATION. PATIENT IS ON TELEMETRY NUMBER 7 AND IN NORMAL SINUS RHYTHM. LUNG SOUNDS ARE CLEAR IN THE UPPER LOBES AND DIMINISHED IN THE BASES BILATERALLY. IV SITE FLUSHED WITH 10 ML NORMAL SALINE. 1400 UNASYN DOSE IS INFUSING AT THIS TIME. IV DRESSING IS CLEAN, DRY, AND INTACT. PATIENT STATED NO FURTHER NEEDS AT THIS TIME. CALL LIGHT AND PERSONAL BELONGINGS ARE WITHIN REACH.
--- NOTE | 2024-12-01 15:32 | NUR ---
PATIENT WIPE DOWN COMPLETE. PATIENT HAIR BRUSHED AND IS BRAIDED BACK OUT OF THE PATIENTS FACE. PATIENT TOLERATED WELL. PATIENT THEN AMBULATED TO THE BATHROOM AND HAD ONE MEAUSRED VOID AND LIQUID STOOL. WHILE PATIENT WAS IN THE BATHROOM, BED LINENS WERE CHANGED. PATIENT THEN AMBULATED BACK TO THE BED. PATIENT REPOSITIONED IN BED AND IS COMFORTABLE. SEIZURE PADS BACK IN PLACE WITH THE BED ALARM ON. PATIENT STATED NO FURTHER NEEDS AT THIS TIME. CALL LIGHT, PHONE, AND PERSONAL BELONGINGS ARE WITHIN REACH.
--- NOTE | 2024-12-01 15:47 | NUR ---
NOTIFIED OF PATIENT LIQUID DIARRHEA. PUT IN ORDER FOR STOOOL SAMPLE. NO FURTHER ORDERS.
--- NOTE | 2024-12-01 16:06 | NUR ---
PATIENT IS LYING IN BED WITH EYES OPEN AND RESPIRATIONS ARE EVEN AND UNLABORED. PATIENT IS WATCHING TV. CPOX AT BEDSIDE. SEIZURE PADS IN PLACE. CALL LIGHT AND PERSONAL BELONGINGS ARE WITHIN REACH.
--- NOTE | 2024-12-01 17:15 | NUR ---
PATIENT IS LYING IN BED ON HER BACK WITH EYES CLOSED AND RESPIRATIONS ARE EVEN AND UNLABORED. KNEES ARE DRAWN UP. CPOX AT BEDSIDE. SEIZURE PADS IN PLACE. CALL LIGHT AND PERSONAL BELONGINGS ARE WITHIN REACH.
[2024-12-01 18:56] LABS: KEPPRA (LEVETIRACETAM) 27 ug/mL (10-40)
--- NOTE | 2024-12-01 19:55 | NUR ---
PT IN BED, SEIZURE PADS IN BED, PT ON ROOM AIR, LUNGS CLEAR DIM AT BASES, CPOX AT BEDSIDE, TELE#[address], SR. DENIES CP OR SOB. ABD SOFT, MITCHELL, LBM TODAY. TRACE EDEMA MIDCLAVES DOWN TO ANKLES, ENCOURAGED TO ELEVATED, SEMIRESEISTIVE TO THIS INSTRUCTIONS. CONTINUE TO REINFORCE. MOIST HARSH NON PRODUCTIVE COUGH PRESENT. SL LW PATENT. TOLERATING LIQUIDS WELL
--- NOTE | 2024-12-01 20:51 | NUR ---
Pt visiting with sister via phone. Pt alert and oriented to all at this time, smiling, pleasant, cooperative, helps with repositioning. Pure wick in place as per her requests. helped with repositioning. LE elevated. tolerating fluids, juice given on requests. no c/o pain.
--- NOTE | 2024-12-02 00:31 | NUR ---
RESTING, EYES CLOSED, NO RESP DISTRESS. CPOX AT BEDSIDE, SEIZURE PADS IN PLACE. PURE WICK IN PLACE. BED ALARMS ON FALL PRECAUTIONS
[2024-12-02 01:29] VITALS: BP 125/66
--- NOTE | 2024-12-02 03:27 | NUR ---
awake, watching tv, no c/o pain, on room air, cpox at bedside. seizures pad in place, pure wick, bed alarms
[2024-12-02 05:24] VITALS: BP 139/78
[2024-12-02 05:51] LABS: BASOPHILS 0.8 % (0-2); EOSINOPHILS 1.2 % (0-6); HEMATOCRIT 39.4 % (35.0-50.0); HEMOGLOBIN 13.1 g/dL (12.0-18.0); MCH 29.9 (27-36); MCHC 33.1 g/dl (30-36); MCV 90.4 fl (81-99); MONOCYTES 12.3 % (0-12); NEUTROPHILS 47.7 % (39-80); PLATELET COUNT 145 K/uL (140-440); RBC 4.36 M/ul (4.3-5.7); RDW 14.3 (10.5-15.0)
[2024-12-02 06:05] LABS: ANION GAP 13.9 (7-21); BUN/CREATININE RATIO 17.5 (6.0-28.6); CALCIUM 8.6 mg/dL (8.5-10.1); CREATININE, SERUM 0.8 mg/dL (0.55-1.02); MAGNESIUM 1.9 mg/dL (1.8-2.4); POTASSIUM 3.9 mmol/L (3.5-5.1)
--- NOTE | 2024-12-02 06:13 | NUR ---
Awake, watching tv, has not slept more than 1/2 an hour or so this shift. alert and oriented to all. cooperative, calm. On room air, bedsice cpox in place. Up for daily standing weight scale 80.60 kg. lab called back with a critical lab value troponin 64.5, to be notified. Pt awake, watchingt v, back in bed. seizure pads in place, bed alarm. denies c/o CP or seizure s/sx
--- NOTE | 2024-12-02 06:27 | NUR ---
DR TIMMONS NOTIFIED VIA PHONE ABOUT PTS CRITICAL LAB TROPONIN VALUES OF 64.5. PT AWAKE, ALERT AND ORIENTED, DENIES ANY CP, TELE IN PLACE, SR. NO NEW ORDERS RECEIVED
--- NOTE | 2024-12-02 07:44 | NUR ---
REPORT RECEIVED FROM ROSALINDA GARCIA. PT RESTING IN BED WITH EYES CLOSED. CALL LIGHT WITHIN REACH.
[2024-12-02] MEDS ORDERED: ALBUTEROL/IPRATROPIUM 3 ML NEB INH SCH (08:00)
--- NOTE | 2024-12-02 09:12 | NUR ---
HOLDING PT MEDS SHE IS NPO FOR STRESS TEST, WILL ADMINISTER AFTER SHE RETURNS.
[2024-12-02 09:15] VITALS: BP 130/61
[2024-12-02] MEDS ORDERED: Regadenoson 0.4 MG/5 ML SYR IV ONE (09:45)
--- NOTE | 2024-12-02 09:46 | NUR ---
PATIENT TO CARDIAC STRESS TEST.
--- NOTE | 2024-12-02 11:34 | NUR ---
INTO SEE PATIENT. PATIENT STATES "I AM GOING HOME WITH MY BROTHER AND DOG." NO FUTHER NEEDS FROM CM AT THIS TIME.
[2024-12-02 11:47] VITALS: BP 147/85
--- NOTE | 2024-12-02 11:48 | NUR ---
PATIENT HAD SYNCOPE WHILE AMBULATING TO BATHROOM. NURSE ASSISTED PATIENT TO CHAIR. PATIENT ABRUPTLY ROUSED AND IS A/0. VITALS ARE STABLE. DR. TIMMONS IN ROOM. PATIENT REFUSES TO TRANSFER TO HIGHER LEVEL OF CARE AND INSISTS ON GOING HOME TODAY.
--- NOTE | 2024-12-02 11:50 | NUR ---
WHILE AMB PT TO RESTROOM WITH FWW PT STOPPED TALKING AND LISTED TO HER RIGHT SIDE. GRABBED AHOLD OF HER FROM THE BACK AND SHE THEN SAGGED INTO THIS RN. CALLED FOR HELP AND WAS ASSISTED TO PLACE PT INTO HER CHAIR. PT THEN JOLTED AWAKE AND WAS ABLE TO ANSWER ALL QUESTIONS APPROP. VS STABLE. STILL STATES SHE WANTS TO GO HOME TODAY AND WILL FOLLOW UP WITH TOMORROW.
--- NOTE | 2024-12-02 13:26 | NUR ---
IM LETTER SIGNED COPY GIVEN AND WAIVED 4 HOUR WAITING PERIOD.
--- NOTE | 2024-12-02 14:36 | NUR ---
PT NOT AVAILABLE FOR VISIT. PROVIDED PRAYER.
--- NOTE | 2024-12-02 14:37 | NUR ---
PT LAYING IN BED. STARTED IV AB. UPSET THAT SHE HAS NOT BEEN DISCHARGED HOME AND STATES "IF MY BROTHER DOESN'T WANT ME THERE THAN I WILL STAY OUT IN THE COLD" ADVISED THAT WAS NOT AN APPROP OPTION AND MAYBE A SNF WOULD BE AN OPTION IF HER AND HER BROTHER DO NOT GET ALONG. SHE SAID SHE JUST WANTS TO GO HOME TO HER "BABIES" DOGS.
--- NOTE | 2024-12-02 14:56 | NUR ---
PT UP TO BSC WITHOUT INCIDENCE. PT TOLERATED WELL AND HAD BM AND URINE.
[2024-12-02 14:59] VITALS: BP 126/59
[2024-12-02] MEDS ORDERED: JARDIANCE10 MG PO (15:10)
[2024-12-02] MEDS ORDERED: LISINOPRIL5 MG PO (15:10)
[2024-12-02] MEDS ORDERED: ASPIRIN81 MG PO (15:10)
[2024-12-02] MEDS ORDERED: CARVEDILOL3.125 MG PO (15:10)
[2024-12-02] MEDS ORDERED: KEPPRA1000 MG PO (15:10)
[2024-12-02] MEDS ORDERED: SPIRONOLACTONE25 MG PO (15:10)
[2024-12-02] MEDS ORDERED: ASPIRIN 81 MG CHEW PO ONE (15:15)
[2024-12-02 16:04] VITALS: BP 142/73
--- NOTE | 2024-12-03 15:49 | STRESS ---
[facility] [address] [facility] [place] [address] Signed DATE OF STUDY: This is a nondiagnostic pharmacological EKG stress test for ischemia. Kindly refer to the nuclear perfusion scan read by the radiologist for complete details. MD TAYLOR Angel/PRANAV /[id number] PATIENT NAME: DEISY KEVIN Stress test DATE OF : 60 PHYSICIAN: MARYLOU PATTERSON MD REPORT #: [id number] REPORT IS CONFIDENTIAL AND NOT TO BE RELEASED WITHOUT AUTHORIZATION
== END 2024-12-02 16:10 | disposition home or self-care (01) | DRG 100 ==
LOC: ED 07:35 → MS 11:53
PROVIDERS: Emergency Medicine; ADMIT Student in an Organized Health Care Education/Training Program; ATTEND Family Medicine
DX: G40.909 Epilepsy, unspecified, not intractable, without status epilepticus (principal); J69.0 Pneumonitis due to inhalation of food and vomit; I50.42 Chronic combined systolic (congestive) and diastolic (congestive) heart failure; E87.20 Acidosis, unspecified; R79.89 Other specified abnormal findings of blood chemistry; R19.7 Diarrhea, unspecified; R09.02 Hypoxemia; E87.6 Hypokalemia; F17.200 Nicotine dependence, unspecified, uncomplicated; T42.6X6A Underdosing of other antiepileptic and sedative-hypnotic drugs, initial encounter; Z91.138 Patient's unintentional underdosing of medication regimen for other reason; Z88.5 Allergy status to narcotic agent
CPT/HCPCS: 36415; 70450; 71045; 71046; 78452; 80048; 80053; 80177; 80185; 81001; 82803; 83605; 83735; 83880; 84484; 85025; 85060; 87040; 87502; 93005; 93010; 93017; 93306; 94640; 94667; 94668; 94760; 94762; 97162; 97165; 97530; 99406; A9270; A9500; J0295; J0456; J0696; J1650; J1940; J1953; J2060; J2310; J2785; J7030; U0002

== ENCOUNTER 2024-12-04 20:00 | Emergency (ER) | payer MEDICARE, OTHER ==
[~2024-12-04] VITALS: Ht 157.5 cm; Wt 91.6 kg
[~2024-12-04 20:00] MED LIST changes: +ASPIRIN81 MG PO; +CARVEDILOL3.125 MG PO; +JARDIANCE10 MG PO; +KEPPRA1000 MG PO; +LISINOPRIL5 MG PO; +PAXIL20 MG PO; +SEROQUEL25 MG PO; +SPIRONOLACTONE25 MG PO
[2024-12-04 20:23] LABS: HEMATOCRIT 40.5 % (35.0-50.0); HEMOGLOBIN 13.4 g/dL (12.0-18.0); MCH 29.9 (27-36); MCHC 33.1 g/dl (30-36); MCV 90.5 fl (81-99); PLATELET COUNT 158 K/uL (140-440); RBC 4.48 M/ul (4.3-5.7)
[2024-12-04 20:35] LABS: ALBUMIN 3.8 g/dL (3.4-5.0); ALCOHOL, MEDICAL <3 ng/dL (<3); ALKALINE PHOSPHATASE 80 U/L (46-116); ALT (SGPT) 36 U/L (14-59); ANION GAP 16.4 (7-21); AST (SGOT) 22 U/L (15-37); BILIRUBIN, TOTAL 0.2 ng/dL (0.2-1.0); BUN/CREATININE RATIO 15.21 (6.0-28.6); CALCIUM 9.1 mg/dL (8.5-10.1); CARBON DIOXIDE 25 mmol/L (21-32); CHLORIDE 104 mmol/L (98-107); CREATININE, SERUM 0.92 mg/dL (0.55-1.02); GLOMERULAR FILTRATION RATE,EST 70 mL/min (>60); POTASSIUM 3.4 mmol/L (3.5-5.1); PROTEIN, TOTAL 7.6 g/dL (6.4-8.2); UREA NITROGEN 14 mg/dL (7-18)
[2024-12-04 20:38] LABS: BANDS, MANUAL DIFF 2; LYMPHOCYTES, MANUAL DIFF 44; MONOCYTES, MANUAL DIFF 5; NEUTROPHILS, MANUAL DIFF 49
[2024-12-04 22:20] VITALS: BP 140/73
== END 2024-12-04 22:20 | disposition home or self-care (01) ==
LOC: ED 20:00
PROVIDERS: Emergency Medicine
DX: G40.909 Epilepsy, unspecified, not intractable, without status epilepticus (principal); F17.200 Nicotine dependence, unspecified, uncomplicated; Z91.148 Patient's other noncompliance with medication regimen for other reason; Z88.8 Allergy status to other drugs, medicaments and biological substances; Z79.84 Long term (current) use of oral hypoglycemic drugs; Z79.82 Long term (current) use of aspirin; Z79.899 Other long term (current) drug therapy
CPT/HCPCS: 36415; 80053; 80307; 85025; 99284; G0480

== ENCOUNTER 2024-12-09 14:37 | Emergency (ER) | payer MEDICARE, OTHER ==
[~2024-12-09] VITALS: Ht 157.5 cm; Wt 76.7 kg
[2024-12-09] MEDS ORDERED: SODIUM CHLORIDE 0.9% 1,000 ML IV ONE ×2 (14:45→15:00)
[2024-12-09] MEDS ORDERED: CEFTRIAXONE/SODIUM CHLORIDE 2 GM/100 ML PIGGYBACK IV ONE (14:45)
[2024-12-09 14:57] LABS: BASOPHILS 0.2 % (0-2); HEMATOCRIT 44.6 % (35.0-50.0); HEMOGLOBIN 14.6 g/dL (12.0-18.0); MCH 29.6 (27-36); MCHC 32.6 g/dl (30-36); MCV 90.9 fl (81-99); MONOCYTES 11.2 % (0-12); NEUTROPHILS 83.6 % (39-80); PLATELET COUNT 195 K/uL (140-440); RBC 4.91 M/ul (4.3-5.7); RDW 14.7 (10.5-15.0)
[2024-12-09] MEDS ORDERED: levETIRAcetam 500 MG/5 ML VIAL IV ONE ×2 (15:00→16:45)
[2024-12-09] MEDS ORDERED: ALBUTEROL/IPRATROPIUM 3 ML NEB INH ONE (15:00)
[2024-12-09 15:04] LABS: BILIRUBIN, URINE POSITIVE (negative); BLOOD/HGB, URINE TRACE-I (Negative); KETONE, URINE TRACE (Negative); LEUK ESTERASE, URINE NEGATIVE (negative); NITRITE, URINE NEGATIVE (negative); PH, URINE 5.5 (5-7)
[2024-12-09 15:09] LABS: RED BLOOD CELLS, URINE 0-1 /hpf (0-5)
[2024-12-09 15:10] LABS: BACTERIA, URINE RARE /hpf (negative); CASTS, URINE NONE SEEN \\lpf; COLLECTION TYPE, URINE CLEAN CATCH; CRYSTALS, URINE NONE SEEN (0-1+); EPITHELIAL CELLS, URINE SQUAMOUS 3+ /lpf (0-1+); REFLEX CULTURE, URINE No (No)
[2024-12-09 15:12] LABS: ALBUMIN 3.3 g/dL (3.4-5.0); ALBUMIN/GLOBULIN RATIO 0.89 (1.1-2.4); ANION GAP 16.1 (7-21); BILIRUBIN, TOTAL 0.7 mg/dL (0.2-1.0); BUN/CREATININE RATIO 34.07 (6.0-28.6); CALCIUM 9.3 mg/dL (8.5-10.1); CREATININE, SERUM 1.79 mg/dL (0.55-1.02); POTASSIUM 3.1 mmol/L (3.5-5.1)
[2024-12-09 15:15] LABS: LACTIC ACID, BLOOD 1.5 mmol/L (0.4-2.0)
[2024-12-09 15:30] LABS: BASE EXCESS, BLOOD GAS -0.6 mmol/L (-2-2); HCO3, BLOOD GAS 27.7 mmol/L (22-26); O2 SATURATION, BLOOD GAS 95.5 % (95.0-100.0); PCO2, BLOOD GAS 65.7 mmHg (35-45); PH, BLOOD GAS 7.24 (7.35-7.45); PO2, BLOOD GAS 101 mmHg (80-100); TOTAL CO2, BLOOD GAS 29.6
[2024-12-09 15:31] LABS: OXYGEN RECEIVED, BLOOD GAS 60%
[2024-12-09 15:44] LABS: CORONAVIRUS COVID-19 AG NEGATIVE (NEGATIVE); INFLUENZA A AG NEGATIVE (NEGATIVE); INFLUENZA B AG NEGATIVE (NEGATIVE)
[2024-12-09] MEDS ORDERED: POTASSIUM CHLORIDE 10 MEQ/100 ML BAG IV ONE (16:15)
[2024-12-09] MEDS ORDERED: MAGNESIUM SULFATE 2 GM/50 ML BAG IV ONE (16:15)
[2024-12-09] MEDS ORDERED: POTASSIUM CHLORIDE 10 MEQ/100 ML BAG IV SCH (16:15)
[2024-12-09 16:27] LABS: MAGNESIUM 2.6 mg/dL (1.8-2.4)
[2024-12-09] MEDS ORDERED: LORazepam 2 MG/ML VIAL ONE (17:03)
[2024-12-09] MEDS ORDERED: LORazepam 2 MG/ML VIAL IV ONE ×2 (17:15→18:00)
[2024-12-09] MEDS ORDERED: ACETAMINOPHEN 650 MG SUPP PR ONE (17:30)
[2024-12-09] MEDS ORDERED: propofoL 100 ML IV SCH (17:45)
[2024-12-09] MEDS ORDERED: SODIUM CHLORIDE 0.9% 1,000 ML IV PRN (18:15)
[2024-12-09] MEDS ORDERED: LACTATED RINGER'S 1,000 ML IV ONE (18:15)
[2024-12-09 18:40] LABS: ANION GAP 16.6 (7-21); BUN/CREATININE RATIO 36.25 (6.0-28.6); CALCIUM 7.9 mg/dL (8.5-10.1); CREATININE, SERUM 1.6 mg/dL (0.55-1.02); MAGNESIUM 3.1 mg/dL (1.8-2.4); POTASSIUM 3.6 mmol/L (3.5-5.1)
--- NOTE | 2024-12-09 19:35 | EKG ---
[facility] [address] [facility] [place] [address] Signed Sinus tachycardia Moderate voltage criteria for LVH, may be normal variant ( Sokolow-Torres , [place] product ) ST \T\ T wave abnormality, consider lateral ischemia Abnormal ECG When compared with ECG of 27-NOV-2024 08:05, No significant change was found Confirmed by Bert Rich MD ([id number]) on 12/09/2024 7:34:54 PM Electronically Signed By: BERT RICH MD 12/09/241934 PATIENT NAME: DEISY KEVIN Electrocardiogram DATE OF : 60 PHYSICIAN: BERT RICH MD REPORT #: [id number] REPORT IS CONFIDENTIAL AND NOT TO BE RELEASED WITHOUT AUTHORIZATION
[2024-12-09 19:55] LABS: PH, VENOUS 7.426 (7.31-7.41)
[2024-12-09] MEDS ORDERED: KETOROLAC TROMETHAMINE 30 MG/ML VIAL IV ONE (20:00)
[2024-12-09] MEDS ORDERED: DEXAMETHASONE SOD PHOS 10 MG/ML VIAL IV ONE (20:00)
[2024-12-09] MEDS ORDERED: ACETAMINOPHEN 1,000 MG/100 ML VIAL IV ONE (21:15)
[2024-12-09 22:31] VITALS: BP 90/61
== END 2024-12-09 21:52 | disposition short-term general hospital (02) ==
LOC: ED 14:37
PROVIDERS: Emergency Medicine; Family Medicine
DX: G40.901 Epilepsy, unspecified, not intractable, with status epilepticus (principal); A41.9 Sepsis, unspecified organism; F17.200 Nicotine dependence, unspecified, uncomplicated; Z88.4 Allergy status to anesthetic agent; Z79.82 Long term (current) use of aspirin; Z79.84 Long term (current) use of oral hypoglycemic drugs; Z79.899 Other long term (current) drug therapy
CPT/HCPCS: 36415; 36600; 51702; 70450; 71045; 80048; 80053; 81001; 82803; 83605; 83735; 84484; 85025; 87040; 87077; 87186; 93005; 93010; 94640; 94799; 99291; A9270; J0131; J0696; J1100; J1885; J1953; J2060; J2704; J3475; J3480; J7030; J7121